=== PATIENT | male | born 1955 | race Caucasian/White ===

== ENCOUNTER 2016-07-15 19:10 | Inpatient (IN) | payer OTHER ==
[~2016-07-15] VITALS: Ht 180.3 cm; Wt 83.0 kg
[2016-07-15 19:13] VITALS: BP 180/138; PULSE 106; RESP 16; TEMP 98; O2SAT 93
[2016-07-15] MEDS ORDERED: ADVA500A INH (19:27)
[2016-07-15] MEDS ORDERED: PRED10 PO (19:27)
--- NOTE | 2016-07-15 19:41 | PD ---
HPI Chief Complaint: Respiratory Symptoms Time Seen by Provider: 19:26 Travel History International Travel<30 days: No Contact w/Intl Traveler<30days: No Traveled to known affect area: No History of Present Illness HPI The patient is a 61 year old male who presents to the [facility] emergency department with a history of shortness of breath. He reports is intermittently been present since last week. The patient reports that he discuss this with his primary care physician in [place] prior to traveling to the area for vacation. He reports that he was given a prescription for prednisone which he has been taking in small amounts since then. He reports that his symptoms have worsened since arriving in [place] as he is experiencing sneezing, itchy watery eyes, nasal congestion, and he is concerned that he is experiencing some seasonal allergies. The patient reports that he does have a history of COPD. He reports that he uses an Advair inhaler. He denies having a rescue inhaler. The patient denies any recent fevers, neck pain, chest pain, abdominal pain, vomiting, diarrhea, urinary symptoms, or neurologic symptoms. [facility] Past Medical History Narrative Medical The patient's past medical history is significant for COPD, history of chest pain status post cardiac catheterization that was reportedly unremarkable for blockages in December 2015. Cardiovascular Problems: Yes (HEART CATH) COPD: Yes Respiratory: Yes (COPD) Tetanus Vaccination: < 5 Years Influenza Vaccination: No Past Surgical History Narrative Surgical The patient's past surgical history is significant for a cardiac catheterization in 2015 without any evidence of blockages, history of eye surgery related to strabismus. Cardiac Surgery: Yes (Cath 2016) Eye Surgery: Yes Social History Alcohol Use: Yes (2 times per) Tobacco Use: No (quit 3 years ago) Substance Use: No Allergies-Medications (Allergen,Severity, Reaction): Coded Allergies: Iodine (Verified Allergy, Severe, Respiratory Failure, 07/15/16) Codeine (Verified Allergy, Unknown, 07/15/16) Reported Meds & Prescriptions Reported Meds & Active Scripts Active Reported Advair Diskus Inh (Fluticasone-Salmeterol Inh) 500-50 Mcg/Blist Aer 1 Puff INH DAILY Rinse mouth after use. Prednisone 10 Mg Tab 10 Mg PO DAILY Review of Systems General / Constitutional: No: Fever Eyes: No: Visual changes HENT: Positive: Rhinitis, Congestion, No: Headaches Cardiovascular: Positive: Dyspnea on exertion, No: Chest Pain or Discomfort Respiratory: Positive: Cough, Shortness of Breath, Wheezing, Sneezing Gastrointestinal: No: Nausea, Vomiting, Abdominal Pain Genitourinary: No: Dysuria Musculoskeletal: No: Pain Skin: No Rash Neurologic: No: Weakness Psychiatric: No: Depression Endocrine: No: Polydipsia Hematologic/Lymphatic: No: Easy Bruising Physical Exam Narrative General: The patient is a well-developed well-nourished male in no acute distress. Head and Neck exam: Head is normocephalic atraumatic. Eyes: Pupils are equal round and reactive to light. Nose: Midline septum with pink mucous membranes Mouth: Dentition unremarkable. Moist mucus membranes. Posterior oropharynx is not erythematous. No tonsillar hypertrophy. Uvula midline. Airway patent. Neck: No palpable lymphadenopathy. No nuchal rigidity. No thyromegaly. Cardiovascular: Sinus tachycardia in the low 100s without murmurs, gallops, or rubs. No pulse deficit to the extremities and tenderness auscultation and palpation of his radial artery. Lungs: Decreased breath sounds and air movement bilaterally. No rhonchi, crackles, or wheezes audible. Abdomen: Soft, without tenderness to palpation in all 4 quadrants of the abdomen. No guarding, rebound, or rigidity. Normal bowel sounds are audible Extremities: No clubbing, cyanosis, or edema. 2+ pulses in all 4 extremities. No calf tenderness on palpation. Back: No spinous process tenderness to palpation. No costovertebral angle tenderness to palpation. Neurologic Exam: Grossly nonfocal. Skin Exam: No rash noted. Intact skin that is warm and dry. Data Data Last Documented VS Vital Signs Date Time Temp Pulse Resp B/P Pulse Ox O2 Delivery O2 Flow Rate FiO2 07/15/16 21:25 92 Nasal Cannula 2 07/15/16 21:25 98 20 160/87 07/15/16 19:13 98.0 Orders Complete Blood Count With Diff (07/15/16 19:34) Comprehensive Metabolic Panel (07/15/16 19:34) Act Partial Throm Time (Ptt) (07/15/16 19:34) Prothrombin Time / Inr (Pt) (07/15/16 19:34) Magnesium (Mg) (07/15/16 19:34) Ckmb (Isoenzyme) Profile (07/15/16 19:34) Troponin I (07/15/16 19:34) Urinalysis - C+S If Indicated (07/15/16 19:34) Iv Access Insert/Monitor (07/15/16 19:34) Electrocardiogram (07/15/16 19:34) Ecg Monitoring (07/15/16 19:34) Oximetry (07/15/16 19:34) Oxygen Administration (07/15/16 19:34) Chest, Single Ap (07/15/16 19:34) Sodium Chloride 0.9% Flush (Ns Flush) (07/15/16 19:45) Methylprednisolone So Succ Inj (Solumedr (07/15/16 19:45) Albuterol-Ipratropium Neb (Duoneb Neb) (07/15/16 19:45) CKMB (07/15/16 19:40) CKMB% (07/15/16 19:40) Aspirin Chew (Aspirin Chew) (07/15/16 21:45) Nitroglycerin 2% Oint (Nitroglycerin 2% (07/15/16 21:45) Albuterol Neb (Albuterol Neb) (07/15/16 21:45) Admit Order (Ed Use Only) (07/15/16 21:42) Labs Laboratory Tests Test 07/15/16 19:40 White Blood Count 14.6 TH/MM3 Red Blood Count 5.86 MIL/MM3 Hemoglobin 16.9 GM/DL Hematocrit 50.3 % Mean Corpuscular Volume 85.8 FL Mean Corpuscular Hemoglobin 28.9 PG Mean Corpuscular Hemoglobin 33.7 % Concent Red Cell Distribution Width 13.9 % Platelet Count 509 TH/MM3 Mean Platelet Volume 7.4 FL Neutrophils (%) (Auto) 86.8 % Lymphocytes (%) (Auto) 9.4 % Monocytes (%) (Auto) 3.4 % Eosinophils (%) (Auto) 0.0 % Basophils (%) (Auto) 0.4 % Neutrophils # (Auto) 12.6 TH/MM3 Lymphocytes # (Auto) 1.4 TH/MM3 Monocytes # (Auto) 0.5 TH/MM3 Eosinophils # (Auto) 0.0 TH/MM3 Basophils # (Auto) 0.1 TH/MM3 CBC Comment AUTO DIFF Differential Comment AUTO DIFF CONFIRMED Platelet Estimate HIGH Platelet Morphology Comment NORMAL Red Cell Morphology Comment NORMAL Prothrombin Time 10.7 SEC Prothromb Time International 1.0 RATIO Ratio Activated Partial 25.1 SEC Thromboplast Time Sodium Level 138 MEQ/L Potassium Level 4.4 MEQ/L Chloride Level 99 MEQ/L Carbon Dioxide Level 29.7 MEQ/L Anion Gap 9 MEQ/L Blood Urea Nitrogen 31 MG/DL Creatinine 1.26 MG/DL Estimat Glomerular Filtration 59 ML/MIN Rate Random Glucose 112 MG/DL Calcium Level 9.5 MG/DL Magnesium Level 2.5 MG/DL Total Bilirubin 0.4 MG/DL Aspartate Amino Transf 22 U/L (AST/SGOT) Alanine Aminotransferase 47 U/L (ALT/SGPT) Alkaline Phosphatase 82 U/L Total Creatine Kinase 247 U/L Creatine Kinase MB 5.1 NG/ML Troponin I 0.03 NG/ML Total Protein 8.4 GM/DL Albumin 4.3 GM/DL [facility] Medical Decision Making Medical Screen Exam Complete: Yes Emergency Medical Condition: Yes Medical Record Reviewed: Yes Interpretation(s) Laboratory Tests Test 07/15/16 19:40 White Blood Count 14.6 TH/MM3 Red Blood Count 5.86 MIL/MM3 Hemoglobin 16.9 GM/DL Hematocrit 50.3 % Mean Corpuscular Volume 85.8 FL Mean Corpuscular Hemoglobin 28.9 PG Mean Corpuscular Hemoglobin 33.7 % Concent Red Cell Distribution Width 13.9 % Platelet Count 509 TH/MM3 Mean Platelet Volume 7.4 FL Neutrophils (%) (Auto) 86.8 % Lymphocytes (%) (Auto) 9.4 % Monocytes (%) (Auto) 3.4 % Eosinophils (%) (Auto) 0.0 % Basophils (%) (Auto) 0.4 % Neutrophils # (Auto) 12.6 TH/MM3 Lymphocytes # (Auto) 1.4 TH/MM3 Monocytes # (Auto) 0.5 TH/MM3 Eosinophils # (Auto) 0.0 TH/MM3 Basophils # (Auto) 0.1 TH/MM3 CBC Comment AUTO DIFF Differential Comment AUTO DIFF CONFIRMED Platelet Estimate HIGH Platelet Morphology Comment NORMAL Red Cell Morphology Comment NORMAL Prothrombin Time 10.7 SEC Prothromb Time International 1.0 RATIO Ratio Activated Partial 25.1 SEC Thromboplast Time Sodium Level 138 MEQ/L Potassium Level 4.4 MEQ/L Chloride Level 99 MEQ/L Carbon Dioxide Level 29.7 MEQ/L Anion Gap 9 MEQ/L Blood Urea Nitrogen 31 MG/DL Creatinine 1.26 MG/DL Estimat Glomerular Filtration 59 ML/MIN Rate Random Glucose 112 MG/DL Calcium Level 9.5 MG/DL Magnesium Level 2.5 MG/DL Total Bilirubin 0.4 MG/DL Aspartate Amino Transf 22 U/L (AST/SGOT) Alanine Aminotransferase 47 U/L (ALT/SGPT) Alkaline Phosphatase 82 U/L Total Creatine Kinase 247 U/L Creatine Kinase MB 5.1 NG/ML Troponin I 0.03 NG/ML Total Protein 8.4 GM/DL Albumin 4.3 GM/DL Last Impressions Chest X-Ray 07/15/161933 Signed Impressions: Service Date/Time: Friday, July 15, 2016 20:15 - CONCLUSION: No acute disease. Hermann Monzon MD Differential Diagnosis COPD exacerbation related to allergic rhinitis, versus COPD exacerbation related to upper respiratory infection, versus new-onset congestive heart failure, versus acute coronary syndrome, versus pneumothorax Narrative Course During the course of the patients emergency department visit, the patients history, examination, and differential diagnosis were reviewed with the patient. The patient had IV access obtained and blood work sent for analysis. The patient was placed on a dry roller with oximetry and blood pressure monitoring. An EKG was ordered. The patient's EKG shows a sinus rhythm heart rate of 90, nonspecific ST-T wave abnormalities, no acute ST segment elevation is noted. The patient was provided DuoNeb 3, Solu-Medrol 125 mg IV. The patient was reexamined after his 3 duo nebs and the patient was saturating 95-96% on room air. The patient had increased air movement and had soft expiratory wheezes now audible. No rhonchi, no crackles audible. The patient received an albuterol nebulizer treatment and unfortunately continued to have wheezing with room air O2 saturation on pulse oximetry of 89% . The patient was placed on supplemental oxygen. The patient was agreeable with the plan to proceed with admission for observation, nebulizer treatments, and IV steroids. The patients laboratory studies were reviewed and remarkable for a white count of 14.6, hemoglobin 16.9, platelets 509 with 86.8 neutrophils. CMP is remarkable for BUN of 31, glucose 112, CPK 247 with an MB percent of 5.1, PT PTT within normal limits, urinalysis shows 30 protein otherwise unremarkable. Radiology studies were reviewed and remarkable for a chest x-ray that showed no acute abnormality. The patients results were discussed with the patient, including the plan of care. I explained that further testing and/ or monitoring is indicated based on the patients history, examination, and/ or laboratory findings. Therefore, I recommended admission for additional evaluation. The patient expressed understanding and was agreeable with this plan. The patient was admitted to the hospital in stable condition and sent to a [facility]. Physician Communication Physician Communication The patient's case was discussed with Dr. Olsen who did agree to admit the patient for further evaluation and treatment at this time. Diagnosis Primary Impression: COPD exacerbation Additional Impression: Hypoxemia Admitting Information Admitting Physician Requests: Observation Mariama Collins MD Jul 15, 2016 19:40
[2016-07-15] MEDS ORDERED: SODIUM CHLORIDE 0.9% FLUSH 5 ML FLUSH IVF PRN (19:45)
[2016-07-15] MEDS ORDERED: methylPREDNISolone SOD SUCC 125 MG/2 ML VIAL IVP ONE (19:45)
[2016-07-15] MEDS: RESP: ALBUTEROL 2.5 MG/IPRATROPIUM 0.5 MG NEB (SCH) INH (19:46)
[2016-07-15 19:51] LABS: AUTOMATED NEUTROPHIL # 12.6 TH/MM3 (1.8-7.7); BASOPHIL # 0.1 TH/MM3 (0-0.2); BASOPHIL % 0.4 % (0.0-2.0); HEMATOCRIT 50.3 % (39.0-51.0); LYMPH % 9.4 % (9.0-44.0); LYMPHOCYTE # 1.4 TH/MM3 (1.0-4.8); MEAN CELL VOLUME 85.8 FL (80.0-100.0); MEAN CORPUSCULAR HEMOGLOBIN 28.9 PG (27.0-34.0); MEAN CORPUSCULAR HGB CONC 33.7 % (32.0-36.0); MONO % 3.4 % (0.0-8.0); NEUT % 86.8 % (16.0-70.0); PLATELET COUNT 509 TH/MM3 (150-450); RED BLOOD COUNT 5.86 MIL/MM3 (4.50-5.90); RED CELL DISTRIBUTION WIDTH 13.9 % (11.6-17.2); WHITE BLOOD COUNT 14.6 TH/MM3 (4.0-11.0)
[2016-07-15 19:53] VITALS: BP 158/106; PULSE 88; RESP 18; O2SAT 99
[2016-07-15 20:00] LABS: HEMO FLAGS AUTO DIFF
[2016-07-15 20:01] LABS: APTT (PATIENT) 25.1 SEC (24.3-30.1); PLATELET ESTIMATE SMEAR HIGH (NORMAL); PLATELET MORPHOLOGY NORMAL (NORMAL); PROTHROMBIN TIME - PATIENT 10.7 SEC (9.8-11.6); SCAN/DIFF AUTO DIFF CONFIRMED
[2016-07-15 20:28] LABS: ALKALINE PHOSPHATASE 82 U/L (45-117); ALT (GPT) 47 U/L (12-78); ANION GAP 9 MEQ/L (5-15); AST (GOT) 22 U/L (15-37); BICARBONATE 29.7 MEQ/L (21.0-32.0); BLOOD UREA NITROGEN 31 MG/DL (7-18); CHLORIDE 99 MEQ/L (98-107); CREATINE KINASE 247 U/L (39-308); GLOMERULAR FILTRATION RATE 59 ML/MIN (>89); MAGNESIUM 2.5 MG/DL (1.5-2.5); POTASSIUM 4.4 MEQ/L (3.5-5.1); SODIUM (NA) 138 MEQ/L (136-145); TOTAL BILIRUBIN ADULT 0.4 MG/DL (0.2-1.0)
[2016-07-15 20:41] LABS: CKMB 5.1 NG/ML (0.5-3.6)
--- NOTE | 2016-07-15 20:56 | RADRPT ---
EXAM DATE/TIME: 07/15/2016 20:15 [facility] COMPARISON: No previous studies available for comparison. INDICATIONS : Short of Breath MEDICAL HISTORY : Chronic obstructive pulmonary disease. SURGICAL HISTORY : None. ENCOUNTER: Initial ACUITY: 1 day PAIN SCORE: 0/10 LOCATION: Bilateral chest FINDINGS: A single view of the chest demonstrates the lungs to be symmetrically aerated without evidence of mas s, infiltrate or effusion. The cardiomediastinal contours are unremarkable. Osseous structures are intact. CONCLUSION: No acute disease. Hermann Monzon MD on July 15, 2016 at 20:53 Board Certified Radiologist. This report was verified electronically.
[2016-07-15 21:25] VITALS: BP 160/87; PULSE 98; RESP 20; O2SAT 89; O2SAT 90
[2016-07-15] MEDS ORDERED: ASPIRIN 81 MG CHEW TAB CHEW ONE (21:45)
[2016-07-15] MEDS ORDERED: RESP: ALBUTEROL 2.5 MG/3 ML NEB (SCH) NEB ONE (21:45)
[2016-07-15] MEDS ORDERED: NITROGLYCERIN 2% OINT 1 GM PACKET TOPICAL ONE (21:45)
[2016-07-15 23:07] LABS: BLOOD, URINE NEG (NEG); GLUCOSE,URINE NEG (NEG); KETONE, URINE NEG (NEG); MUCUS URINE FEW /lpf (OCC); NITRITE,URINE NEG (NEG); SQUAMOUS EPITHELIAL CELL URINE <1 /hpf (0-5); URINE COLOR YELLOW (YELLW/STRAW)
[2016-07-15 23:11] LABS: COMMENT (UR) CULT NOT INDICATED; CULTURE IF INDICATED CULT NOT INDICATED
[2016-07-15 23:54] VITALS: O2SAT 93
[2016-07-16] VITALS (10 sets, daily range): BP systolic 116–150; BP diastolic 74–90; PULSE 73–92; RESP 18–20; TEMP 96.3–97.3; O2SAT 92–96
[2016-07-16] MEDS ORDERED: RESP: ALBUTEROL 2.5 MG/IPRATROPIUM 0.5 MG NEB (PRN) NEB
[2016-07-16] MEDS ORDERED: NALOXONE HCL 0.4 MG/ML AMP IV PRN
[2016-07-16] MEDS ORDERED: SODIUM CHLORIDE 0.9% FLUSH 5 ML FLUSH FLUSH PRN
[2016-07-16] MEDS: methylPREDNISolone SOD SUCC 40 MG/1 ML VIAL IV PUSH SCH ×3 (00:05→11:57)
[2016-07-16] MEDS: RESP: ALBUTEROL 2.5 MG/IPRATROPIUM 0.5 MG NEB (SCH) NEB ×4 (04:30→22:37)
[2016-07-16] MEDS: ENOXAPARIN SODIUM 40 MG/0.4 ML SYRINGE SQ SCH (08:46)
[2016-07-16] MEDS: SODIUM CHLORIDE 0.9% FLUSH 5 ML FLUSH FLUSH SCH ×2 (08:47→21:01)
[2016-07-16] MEDS: PANTOPRAZOLE SOD 40 MG DELAYED RELEASE TAB PO SCH (08:47)
[2016-07-16 09:44] LABS: BICARBONATE 31.9 MEQ/L (21.0-32.0); POTASSIUM 3.8 MEQ/L (3.5-5.1)
--- NOTE | 2016-07-16 14:17 | EKG ---
Date Performed: 07/16/2016 Time Performed: 07:01:46 PTAGE: 61 years EKG: Sinus rhythm NONSPECIFIC T-WAVE ABNORMALITY BORDERLINE ECG PREVIOUS TRACING : 07/16/2016 02.30 DOCTOR: Jose A Ramsay Interpretating Date/Time 07/16/2016 14:13:54
--- NOTE | 2016-07-16 14:21 | EKG ---
Date Performed: 07/16/2016 Time Performed: 02:30:49 PTAGE: 61 years EKG: Sinus rhythm WITH SINUS ARRHYTHMIA NONSPECIFIC T-WAVE ABNORMALITY BORDERLINE ECG PREVIOUS TRACING : 07/15/2016 20.01 DOCTOR: Jose A Ramsay Interpretating Date/Time 07/16/2016 14:17:40
--- NOTE | 2016-07-16 14:26 | EKG ---
Date Performed: 07/15/2016 Time Performed: 20:01:39 PTAGE: 61 years EKG: Sinus rhythm NONSPECIFIC ST & T-WAVE ABNORMALITY BORDERLINE ECG NO PREVIOUS TRACING DOCTOR: Jose A Ramsay Interpretating Date/Time 07/16/2016 14:23:01
--- NOTE | 2016-07-16 15:36 | HHI.HP ---
[facility] Non[facility]Staff Admission Diagnosis COPD exacerbation, hypoxia on RA Diagnoses: Chief Complaint: Shortness of breath Travel History International Travel<30 Days: No Contact w/Intl Traveler <30 Da: No Traveled to Known Affected Are: No History of Present Illness This is a 61 year-old male with history of COPD presented to the hospital with shortness of breath. Of note, patient extremity or from [place]. Before leaving [place], he was given prednisone which she has been on a taper, he has been taking 5 mg of prednisone as needed. During the past week, he is becoming more short of breath, associated with cough, nonproductive without any fever, chills, nausea or vomiting. He however has a runny nose, she will agree eyes and nasal congestion. No fever or chills, urinary symptoms, abdominal pain, chest pain or palpitations. Review of Systems ROS Limitations: Poor Historian (All other pertinent systems were reviewed and are negative.) Past Family Social History Past Medical History COPD Past Surgical History Cardiac catheterization-negative Eye surgery for strabismus Reported Medications Advair Diskus Inh (Fluticasone-Salmeterol Inh) 500-50 Mcg/Blist Aer 1 Puff INH DAILY Rinse mouth after use. Prednisone 10 Mg Tab 10 Mg PO DAILY Allergies: Coded Allergies: Iodine (Verified Allergy, Severe, Respiratory Failure, 07/15/16) Codeine (Verified Allergy, Unknown, 07/15/16) Family History No history of COPD or diabetes in the family Social History Stop smoking 3 years ago, no significant alcohol use. Physical Exam Vital Signs Vital Signs Date Time Temp Pulse Resp B/P Pulse Ox O2 Delivery O2 Flow Rate FiO2 07/16/16 12:00 97.3 84 20 116/82 96 07/16/16 09:30 87 07/16/16 08:51 93 Nasal Cannula 1.00 07/16/16 08:00 96.4 78 20 136/74 92 07/16/16 04:30 93 Nasal Cannula 2.00 07/16/16 04:00 96.4 74 18 132/82 94 07/16/16 04:00 73 07/16/16 00:05 84 18 127/84 94 Nasal Cannula 2 07/15/16 23:54 93 Nasal Cannula 2.00 07/15/16 21:25 92 Nasal Cannula 2 07/15/16 21:25 98 20 160/87 89 Room Air 07/15/16 19:53 88 18 158/106 99 T-piece 07/15/16 19:22 106 20 91 Room Air 07/15/16 19:13 98.0 106 16 180/138 93 Physical Exam Not in distress, well-nourished, looks stated age PERRL, pink conjunctiva without injection, anicteric Nose without bleeding, airway patent, oropharynx clear Supple neck, no masses or thyromegaly, trachea midline Normal rate and regular rhythm, no murmurs gallops or rubs appreciated. Decreased breath sounds bilaterally, occasional wheezing. Normal bowel sounds, soft, non-tender, nondistended, no guarding. Extremities without clubbing, cyanosis, or edema. No rash of generalized distribution. Skin is warm and dry. AAO x3, no cranial nerve deficits, moves all 4 extremities, no focal neurologic deficits Normal mood, appropriate affect Laboratory Laboratory Tests Test 07/15/16 07/15/16 07/16/16 07/16/16 19:40 22:45 02:30 08:34 White Blood Count 14.6 Red Blood Count 5.86 Hemoglobin 16.9 Hematocrit 50.3 Mean Corpuscular Volume 85.8 Mean Corpuscular Hemoglobin 28.9 Mean Corpuscular Hemoglobin 33.7 Concent Red Cell Distribution Width 13.9 Platelet Count 509 Mean Platelet Volume 7.4 Neutrophils (%) (Auto) 86.8 Lymphocytes (%) (Auto) 9.4 Monocytes (%) (Auto) 3.4 Eosinophils (%) (Auto) 0.0 Basophils (%) (Auto) 0.4 Neutrophils # (Auto) 12.6 Lymphocytes # (Auto) 1.4 Monocytes # (Auto) 0.5 Eosinophils # (Auto) 0.0 Basophils # (Auto) 0.1 CBC Comment AUTO DIFF Differential Comment AUTO DIFF CONFIRMED Platelet Estimate HIGH Platelet Morphology Comment NORMAL Red Cell Morphology Comment NORMAL Prothrombin Time 10.7 Prothromb Time International 1.0 Ratio Activated Partial 25.1 Thromboplast Time Sodium Level 138 138 Potassium Level 4.4 3.8 Chloride Level 99 96 Carbon Dioxide Level 29.7 31.9 Anion Gap 9 10 Blood Urea Nitrogen 31 30 Creatinine 1.26 1.35 Estimat Glomerular Filtration 59 54 Rate Random Glucose 112 196 Calcium Level 9.5 9.1 Magnesium Level 2.5 Total Bilirubin 0.4 Aspartate Amino Transf 22 (AST/SGOT) Alanine Aminotransferase 47 (ALT/SGPT) Alkaline Phosphatase 82 Total Creatine Kinase 247 132 105 Creatine Kinase MB 5.1 Troponin I 0.03 0.02 0.02 Total Protein 8.4 Albumin 4.3 Urine Color YELLOW Urine Turbidity CLEAR Urine pH 6.0 Urine Specific [place] 1.030 Urine Protein 30 Urine Glucose (UA) NEG Urine Ketones NEG Urine Occult Blood NEG Urine Nitrite NEG Urine Bilirubin NEG Urine Urobilinogen LESS THAN 2.0 Urine Leukocyte Esterase NEG Urine RBC 2 Urine WBC 1 Urine Squamous Epithelial <1 Cells Urine Mucus FEW Microscopic Urinalysis Comment CULT NOT INDICATED Result Diagram: 07/15/16193907/16/16 0834 Imaging Last Impressions Chest X-Ray 07/15/161933 Signed Impressions: Service Date/Time: Friday, July 15, 2016 20:15 - CONCLUSION: No acute disease. Hermann Monzon MD Assessment and Plan Assessment and Plan This is a 61 year-old male with history of COPD presenting with shortness of breath Acute COPD exacerbation-chest x-ray personally reviewed negative for pneumonia, patient however has been on prednisone still not getting better, continue intravenous Solu-Medrol, taper to oral tomorrow, start azithromycin intravenously then switched oral. Continue Advair, DuoNeb's [id number] and as needed. Continue oxygen support. Allergic rhinitis-May have an allergic component, start loratadine and Flonase. Acute renal failure-likely from dehydration, start IVF. Recheck BMP tomorrow. Monitor urine output, urinalysis is unremarkable. DVT prophylaxis: Lovenox Physician Certification 2 Midnight Certification Type: Admission for Inpatient Services Order for Inpatient Services The services are ordered in accordance with Medicare regulations or non- Medicare payer requirements, as applicable. In the case of services not specified as inpatient-only, they are appropriately provided as inpatient services in accordance with the 2-midnight benchmark. Estimated LOS (days): 2 days is the estimated time the patient will need to remain in the hospital, assuming treatment plan goals are met and no additional complications. Post-Hospital Plan: Home Stephanie Mercedes MD Jul 16, 2016 15:36
[2016-07-16] MEDS ORDERED: AZITHROMYCIN INJ 500 MG in SODIUM CHLOR 0.9% 250 ML INJ 250 ML IV ONE (15:45)
[2016-07-16] MEDS: FLUTICASONE PROPIONATE 50 MCG/ACT 16 GM NASAL SPRAY EACH NARE SCH (17:04)
[2016-07-16] MEDS: SODIUM CHLOR 0.9% 1000 ML INJ 1,000 ML IV SCH (17:05)
[2016-07-16] MEDS: LORATADINE 10 MG TAB PO SCH (17:05)
[2016-07-16] MEDS ORDERED: ARTIFICIAL TEARS OPTH SOLN 15 ML BTL EACH EYE PRN (22:45)
[2016-07-17] VITALS: BP 147/90; PULSE 74; RESP 18; TEMP 97.1; O2SAT 94
[2016-07-17] MEDS: SODIUM CHLOR 0.9% 1000 ML INJ 1,000 ML IV SCH ×2 (01:45→06:32)
[2016-07-17 04:00] VITALS: BP 154/92; PULSE 70; RESP 18; TEMP 96.2; O2SAT 96
[2016-07-17] MEDS: RESP: ALBUTEROL 2.5 MG/IPRATROPIUM 0.5 MG NEB (SCH) NEB ×2 (05:26→08:59)
[2016-07-17] MEDS ORDERED: ACETAMINOPHEN 325 MG TAB PO ONE (06:15)
[2016-07-17 06:38] LABS: BICARBONATE 29.3 MEQ/L (21.0-32.0); POTASSIUM 3.9 MEQ/L (3.5-5.1)
[2016-07-17 08:00] VITALS: BP 112/68; PULSE 82; RESP 18; TEMP 98.3; O2SAT 95
[2016-07-17] MEDS: SODIUM CHLORIDE 0.9% FLUSH 5 ML FLUSH FLUSH SCH (09:00)
[2016-07-17] MEDS: ENOXAPARIN SODIUM 40 MG/0.4 ML SYRINGE SQ SCH (09:00)
[2016-07-17] MEDS ORDERED: AZITHROMYCIN 250 MG TAB PO SCH (09:00)
[2016-07-17] MEDS ORDERED: predniSONE 20 MG TAB PO SCH (09:00)
[2016-07-17 09:02] VITALS: O2SAT 95
[2016-07-17] MEDS: FLUTICASONE PROPIONATE 50 MCG/ACT 16 GM NASAL SPRAY EACH NARE SCH (10:05)
[2016-07-17] MEDS: PANTOPRAZOLE SOD 40 MG DELAYED RELEASE TAB PO SCH (10:06)
[2016-07-17] MEDS: LORATADINE 10 MG TAB PO SCH (10:06)
[2016-07-17] MEDS ORDERED: LORA-361 PO (10:10)
[2016-07-17] MEDS ORDERED: FLUT50SP EACH NARE (10:10)
[2016-07-17] MEDS ORDERED: ZITH250T PO (10:10)
[2016-07-17] MEDS ORDERED: PRED10 PO (10:10)
--- NOTE | 2016-07-17 10:11 | HHI.DS ---
Discharge Summary Admission Date Jul 16, 2016 at 00:26 Discharge Date: Jul 17, 2016 Admitting Diagnosis COPD exacerbation, hypoxia on RA (1) COPD exacerbation ICD Code: J44.1 (2) Hypoxemia ICD Code: R09.02 Procedures None Brief History - From Admission This is a 61 year-old male with history of COPD presented to the hospital with shortness of breath. Of note, patient extremity or from [place]. Before leaving [place], he was given prednisone which she has been on a taper, he has been taking 5 mg of prednisone as needed. During the past week, he is becoming more short of breath, associated with cough, nonproductive without any fever, chills, nausea or vomiting. He however has a runny nose, she will agree eyes and nasal congestion. No fever or chills, urinary symptoms, abdominal pain, chest pain or palpitations. CBC/BMP: 07/15/16 19407/17/16 0526 Significant Findings Laboratory Tests Test 07/15/16 07/15/16 07/16/16 07/17/16 19:40 22:45 08:34 05:26 White Blood Count 14.6 TH/MM3 (4.0-11.0) Platelet Count 509 TH/MM3 (150-450) Neutrophils (%) (Auto) 86.8 % (16.0-70.0) Neutrophils # (Auto) 12.6 TH/MM3 (1.8-7.7) Platelet Estimate HIGH (NORMAL) Blood Urea Nitrogen 31 MG/DL (7-18) 30 MG/DL (7-18) 30 MG/DL (7-18) Estimat Glomerular Filtration 59 ML/MIN (>89) 54 ML/MIN (>89) 69 ML/MIN (>89) Rate Random Glucose 112 MG/DL 196 MG/DL 109 MG/DL (74-106) (74-106) (74-106) Creatine Kinase MB 5.1 NG/ML (0.5-3.6) Total Protein 8.4 GM/DL (6.4-8.2) Urine Protein 30 mg/dL (NEG-TRACE) Urine Mucus FEW /lpf (OCC) Chloride Level 96 MEQ/L (98-107) Creatinine 1.35 MG/DL (0.60-1.30) Imaging Last Impressions Chest X-Ray 07/15/161933 Signed Impressions: Service Date/Time: Friday, July 15, 2016 20:15 - CONCLUSION: No acute disease. Hermann Monzon MD PE at Discharge Not in distress, well-nourished, looks stated age PERRL, pink conjunctiva without injection, anicteric Nose without bleeding, airway patent, oropharynx clear Supple neck, no masses or thyromegaly, trachea midline Normal rate and regular rhythm, no murmurs gallops or rubs appreciated. Decreased breath sounds symmetrically, no wheezing, no crackles. Normal bowel sounds, soft, non-tender, nondistended, no guarding. Extremities without clubbing, cyanosis, or edema. No rash of generalized distribution. Skin is warm and dry. AAO x3, no cranial nerve deficits, moves all 4 extremities, no focal neurologic deficits Normal mood, appropriate affect Pt update on day of discharge Significantly better today compared to yesterday, improved very rapidly. Still mildly short of breath but wants to go home, no nausea, vomiting, chest pain. Coughing but nonproductive. Afebrile. Hospital Course This is a 61 year-old male with history of COPD all failed outpatient treatment for COPD presenting to the hospital with shortness of breath. Upon admission, the patient was started on intravenous steroids, chest x-ray was unremarkable. Possible bronchitis, patient was started on azithromycin. He also acute renal failure which improved volume resuscitation. Patient responded very well with treatment, he was switched to oral steroids. Creatinine came back normal on the day of discharge. Patient feeling better, he will be discharged on a slow prednisone taper, azithromycin, loratadine and Flonase. Pt Condition on Discharge: Good Discharge Disposition: Discharge Home Discharge Time: > 30 minutes Discharge Instructions DIET: Follow Instructions for: Heart Healthy Diet Activities you can perform: Regular-No Restrictions Follow up Referrals: PCP Follow-up - 1 Week New Medications: Prednisone (Prednisone) 10 Mg Tab 10 MG PO DAILY Take 4 tabs x 5 days, then 3 tabs 3 days, then 2 tabx 3 days, 1 tabx 3 days, then stop. COPD #50 Ref 0 TAB Azithromycin (Zithromax) 250 Mg Tab 500 MG PO DAILY bronchitis #4 TAB Fluticasone Nasal [place] (Fluticasone Nasal [place]) 50 Mcg/Act Naspr 2 SPRAY EACH NARE DAILY runny nose #1 BOTTLE Loratadine (Claritin) 10 Mg Tab 10 MG PO DAILY runny nose #30 TAB Continued Medications: Fluticasone-Salmeterol Inh (Advair Diskus Inh) 500-50 Mcg/Blist Aer 1 PUFF INH DAILY Rinse mouth after use. #1 Ref 0 INHALER Discontinued Medications: Prednisone (Prednisone) 10 Mg Tab 10 MG PO DAILY Ref 0 TAB Stephanie Mercedes MD Jul 17, 2016 10:10
[2016-07-17 12:00] VITALS: BP 140/77; PULSE 90; RESP 18; TEMP 98.5; O2SAT 97
[2016-07-17 12:40] VITALS: PULSE 75
== END 2016-07-17 13:07 | disposition home or self-care (01) | DRG 191 ==
LOC: NEPE 19:10 → NEDA 21:44 → OBSVTOIN 07-16 00:26 → HOCB 07-16 03:23
PROVIDERS: ADMIT Hospitalist; ATTEND Hospitalist
DX: J44.1 Chronic obstructive pulmonary disease with (acute) exacerbation (principal); N17.9 Acute kidney failure, unspecified; J30.2 Other seasonal allergic rhinitis; R09.02 Hypoxemia; E86.0 Dehydration; Z87.891 Personal history of nicotine dependence; Z88.5 Allergy status to narcotic agent; Z88.8 Allergy status to other drugs, medicaments and biological substances
CPT/HCPCS: 71010; 80048; 80053; 81001; 82550; 82552; 83735; 84484; 85025; 85610; 85730; 93005; 94640; 94664; 96374; G0378; J0456; J2920; J2930; J7030; J7050; J7512; J7613

== ENCOUNTER 2016-07-26 04:36 | Emergency (ER) | payer OTHER ==
[~2016-07-26] VITALS: Ht 182.9 cm; Wt 89.0 kg
[~2016-07-26 04:36] MED LIST: ADVA500A INH; FLUT50SP EACH NARE; LORA-361 PO; PRED10 PO; ZITH250T PO
[2016-07-26 04:39] VITALS: BP 139/102; PULSE 94; RESP 18; TEMP 98; O2SAT 95
[2016-07-26] MEDS ORDERED: LEVOFLOXACIN 750 MG TAB PO ONE (06:30)
[2016-07-26] MEDS ORDERED: predniSONE 20 MG TAB PO ONE (06:30)
[2016-07-26] MEDS ORDERED: SPIRCAP INH (06:33)
[2016-07-26] MEDS ORDERED: LEVA750T PO (06:33)
[2016-07-26] MEDS ORDERED: PRED-503 PO (06:33)
--- NOTE | 2016-07-26 06:39 | PD ---
HPI Chief Complaint: Respiratory Symptoms Time Seen by Provider: 06:35 Travel History International Travel<30 days: No Contact w/Intl Traveler<30days: No Traveled to known affect area: No History of Present Illness HPI 61-year-old white male returns to the ER after being discharged from the hospital last week for a COPD exacerbation. He states that he was sent home with 4 days of Zithromax, prednisone, and he was to continue his Serevent. He states that he still feels short of breath and has productive green sputum. He denies any fever or chills. He states his symptoms are moderate but worse when he lays down at night. He does continue to have shortness of breath and wheezing. No nausea or vomiting. PFSH Past Medical History Cancer: No Cardiovascular Problems: Yes (HEART CATH) Chemotherapy: No COPD: Yes Diminished Hearing: No Endocrine: No Genitourinary: No Immune Disorder: No Musculoskeletal: No Psychiatric: No Reproductive: No Respiratory: Yes (COPD) Renal Failure: No Sickle Cell Disease: No Thyroid Disease: No Ulcer: No Past Surgical History Arteriovenous Shunt: No Cardiac Surgery: Yes (Cath 2015) Ear Surgery: Yes (deplobia) Eye Surgery: Yes Insulin Pump: No Joint Replacement: No Other Surgery: Yes Social History Alcohol Use: Yes (2 times per) Tobacco Use: No (quit 3 years ago) Substance Use: No Allergies-Medications (Allergen,Severity, Reaction): Coded Allergies: Iodine (Verified Allergy, Severe, Respiratory Failure, 07/26/16) Codeine (Verified Allergy, Unknown, 07/26/16) Reported Meds & Prescriptions Reported Meds & Active Scripts Active Deltasone (Prednisone) 20 Mg Tab 20 Mg PO TID Spiriva Handihaler (Tiotropium Inh) 18 Mcg Cap 18 Mcg INH DAILY 1 capsule = 18 mcg Levaquin (Levofloxacin) 750 Mg Tab 750 Mg PO DAILY Prednisone 10 Mg Tab 10 Mg PO DAILY Take 4 tabs x 5 days, then 3 tabs 3 days, then 2 tabx 3 days, 1 tabx 3 days, then stop. Claritin (Loratadine) 10 Mg Tab 10 Mg PO DAILY Fluticasone Nasal [place] 50 Mcg/Act Naspr 2 [place] EACH NARE DAILY Zithromax (Azithromycin) 250 Mg Tab 500 Mg PO DAILY Reported Advair Diskus Inh (Fluticasone-Salmeterol Inh) 500-50 Mcg/Blist Aer 1 Puff INH DAILY Rinse mouth after use. Review of Systems Except as stated in HPI: all other systems reviewed are Neg Physical Exam Narrative GENERAL: Well-developed, well-nourished in no acute distress. Nontoxic appearing. HEAD: Normocephalic, atraumatic. EYES: Pupils equal round and reactive. Extraocular motions intact. No scleral icterus. No injection or drainage. ENT: TMs clear without erythema. The external auditory canals clear. Nose: clear . Posterior pharynx is pink and moist. No tonsillar edema or exudate. Uvula midline. Airway patent. NECK: Trachea midline.Supple, nontender, moves head freely. No central bony tenderness or spasm. CARDIOVASCULAR: Regular rate and rhythm without murmurs, gallops, or rubs. RESPIRATORY: Decreased distant breath sounds with fine neck sprain wheezes worse in his bases. GASTROINTESTINAL: Abdomen soft, non-tender, nondistended. No hepato-splenomegaly , or palpable masses. No guarding. EXTREMITIES: No clubbing, cyanosis, or edema. No joint tenderness, effusion, or edema noted. BACK: Nontender without deformity or crepitance. No flank tenderness. Data Data Last Documented VS Vital Signs Date Time Temp Pulse Resp B/P Pulse Ox O2 Delivery O2 Flow Rate FiO2 07/26/16 04:39 98.0 94 18 139/102 95 Room Air Orders Prednisone (Deltasone) (07/26/16 06:30) Levofloxacin (Levaquin) (07/26/16 06:30) [facility] Medical Decision Making Medical Screen Exam Complete: Yes Emergency Medical Condition: Yes Medical Record Reviewed: Yes Differential Diagnosis MDM: High Differential diagnoses: Pneumonia, bronchitis, URI, asthma, RAD, COPD exacerbation Narrative Course tHIS IS copd EXACERBATION, dyspnea Patient is given Levaquin 750 by mouth, prednisone 40 mg by mouth. He'll be discharged home on Spiriva HandiHaler, additional prednisone and Levaquin. Diagnosis Primary Impression: COPD exacerbation Additional Impression: Dyspnea Qualified Code: R06.02 - Shortness of breath Patient Instructions: General Instructions Additional Instructions: Rest. Increase fluids. Tylenol and Advil. Robitussin-DM. Levaquin, prednisone, and Spiriva. Continue your Advair. Followup with your DrKaitlin in 3-5 days. Return to the ER for any problems. Med/Other Pt SpecificInfo: Prescription(s) given Scripts Prednisone (Deltasone)20 Mg Tab20 Mg PO TID #15 TAB Prov:Swetha Parker MD 07/26/16 Tiotropium Inh (Spiriva Handihaler)18 Mcg Cap18 Mcg INH DAILY #30 CAP Ref 0 1 capsule = 18 mcg Prov:Swetha Parker MD 07/26/16 Levofloxacin (Levaquin)750 Mg Tnr428 Mg PO DAILY #7 TAB Ref 0 Prov:Swetha Parker MD 07/26/16 Disposition: 01 DISCHARGE HOME Condition: Stable Hermann Figueroa Jul 26, 2016 06:39
== END 2016-07-26 07:02 | disposition home or self-care (01) ==
LOC: NEPB 04:36
DX: J44.1 Chronic obstructive pulmonary disease with (acute) exacerbation (principal)
CPT/HCPCS: 99283; J7512

== ENCOUNTER 2017-07-27 11:22 | Emergency (ER) | payer BC, OTHER ==
[~2017-07-27] VITALS: Ht 182.9 cm; Wt 81.5 kg
[~2017-07-27 11:22] MED LIST changes: +LEVA750T PO; +PRED-503 PO; +SPIRCAP INH
[2017-07-27 11:31] VITALS: BP 170/80; PULSE 102; RESP 20; TEMP 98.6; O2SAT 96
--- NOTE | 2017-07-27 11:38 | PD ---
HPI Chief Complaint: Respiratory Symptoms Time Seen by Provider: 11:37 Travel History International Travel<30 days: No Contact w/Intl Traveler<30days: No Traveled to known affect area: No History of Present Illness HPI 8-year-old male with history of COPD on chronic albuterol and steroid inhaler presents emergency department with increased wheezing and shortness of breath since arriving here in [place] from [facility]. Patient is requesting some steroids, and states that he gets this way every time he comes to [place]. Patient denies significant fever, chills, or chest pain. Patient states his sputum is clear. He denies upper respiratory symptoms. He denies nausea, vomiting, or abdominal symptoms. Patient has multiple allergies including codeine and any iodine products. PFSH Past Medical History Cancer: No Cardiovascular Problems: Yes (HEART CATH) Chemotherapy: No COPD: Yes Diminished Hearing: No Endocrine: No Genitourinary: No Immune Disorder: No Musculoskeletal: No Psychiatric: No Reproductive: No Respiratory: Yes (COPD) Renal Failure: No Sickle Cell Disease: No Thyroid Disease: No Ulcer: No Past Surgical History Arteriovenous Shunt: No Cardiac Surgery: Yes (Cath 2015) Ear Surgery: Yes (deplobia) Eye Surgery: Yes Insulin Pump: No Joint Replacement: No Other Surgery: Yes Social History Alcohol Use: Yes (2 times per) Tobacco Use: No (quit 3 years ago) Substance Use: No Allergies-Medications (Allergen,Severity, Reaction): Coded Allergies: iodine (Unverified Allergy, Severe, Respiratory Failure, 07/27/17) potassium iodide (Unverified Allergy, Severe, Respiratory Failure, 07/27/17) povidone-iodine (Unverified Allergy, Severe, Respiratory Failure, 07/27/17) sodium iodide (Unverified Allergy, Severe, Respiratory Failure, 07/27/17) sodium iodide (Unverified Allergy, Severe, Respiratory Failure, 07/27/17) codeine (Unverified Allergy, Unknown, 07/27/17) Reported Meds & Prescriptions Reported Meds & Active Scripts Active Prednisone (48) 10 mg tab Dose Pack (Prednisone) 10 Mg Dspk 10 Mg PO DIRECTED Prednisone 10 Mg Tab 10 Mg PO DAILY Take 4 tabs x 5 days, then 3 tabs 3 days, then 2 tabx 3 days, 1 tabx 3 days, then stop. Fluticasone Nasal [place] 50 Mcg/Act Naspr 2 [place] EACH NARE DAILY Zithromax (Azithromycin) 250 Mg Tab 500 Mg PO DAILY Reported Advair Diskus Inh (Fluticasone-Salmeterol Inh) 500-50 Mcg/Blist Aer 1 Puff INH DAILY Rinse mouth after use. Review of Systems Except as stated in HPI: all other systems reviewed are Neg General / Constitutional: No: Fever, Chills Eyes: No: Visual changes HENT: No: Headaches, Vertigo, Lightheadedness, Sore Throat, Rhinitis, Rhinorrhea, Congestion, Nosebleed, Neck Stiffness, Neck Pain, Dental Difficulties, Earache Cardiovascular: No: Chest Pain or Discomfort Respiratory: Positive: Cough, Shortness of Breath, Wheezing, No: Sneezing, Orthopnea, Hemoptysis, Pleuritic Pain Gastrointestinal: No: Nausea, Vomiting, Diarrhea, Abdominal Pain Genitourinary: No: Dysuria Musculoskeletal: No: Pain Skin: No Rash Neurologic: No: Weakness Psychiatric: No: Depression Endocrine: No: Polydipsia Hematologic/Lymphatic: No: Easy Bruising Physical Exam Narrative GENERAL: Patient appears in no acute distress. He is speaking in full sentences. SKIN: Warm and dry. Normal color. Normal turgor. HEAD: Atraumatic. Normocephalic. EYES: Pupils equal and round. No scleral icterus. No injection or drainage. ENT: No nasal bleeding or discharge. Mucous membranes pink and moist. TMs are clear bilaterally. Pharynx is clear. Airways patent. No sinus tenderness to percussion or palpation. NECK: Trachea midline. Supple and nontender. CARDIOVASCULAR: Regular rate and rhythm. RESPIRATORY: No accessory muscle use. Mild to moderate diffuse wheezes throughout to auscultation. No rhonchi or rales. Breath sounds equal bilaterally. MUSCULOSKELETAL: Extremities without clubbing, cyanosis, or edema. No obvious deformities. NEUROLOGICAL: Awake and alert. No obvious cranial nerve deficits. Motor grossly within normal limits. Five out of 5 muscle strength in the arms and legs. Normal speech. PSYCHIATRIC: Appropriate mood and affect; insight and judgment normal. Data Data Last Documented VS Vital Signs Date Time Temp Pulse Resp B/P (MAP) Pulse Ox O2 Delivery O2 Flow Rate FiO2 07/27/17 11:31 98.6 102 20 170/80 (110) 96 Orders Orders Chest, Single Ap (07/27/17 11:41) Dexamethasone Inj (Decadron Inj) (07/27/17 11:45) [facility] Medical Decision Making Medical Screen Exam Complete: Yes Emergency Medical Condition: Yes Differential Diagnosis COPD with acute exacerbation. Dyspnea. Allergic bronchitis. Narrative Course Chest x-ray is ordered. Chest x-ray is unremarkable for acute process per radiologist. Patient is given Decadron 10 mg IM. Patient is felt stable for discharge. Patient will be continued on prednisone taper as prescribed. Patient to continue his albuterol and steroid inhaler as previously prescribed. Patient should return if symptoms worsen as needed. Diagnosis Primary Impression: COPD exacerbation Referrals: Primary Care Physician Patient Instructions: Chronic Bronchitis (ED), General Instructions, Prednisone (By mouth) Additional Instructions: Patient is given Decadron 10 mg IM. Patient is felt stable for discharge. Patient will be continued on prednisone taper as prescribed. Patient to continue his albuterol and steroid inhaler as previously prescribed. Patient should return if symptoms worsen as needed. Med/Other Pt SpecificInfo: Prescription(s) given Scripts Prednisone (48) 10 mg tab Dose Pack (Prednisone (48) 10 mg tab Dose Pack) 10 Mg Dspk 10 MG PO DIRECTED for Inflammation, #1 DSPK 0 Refills Prov: Lucinda Tong DO 07/27/17 Disposition: 01 DISCHARGE HOME Condition: Stable Francisco Cornell Jul 27, 2017 11:38
[2017-07-27] MEDS ORDERED: DEXAMETHASONE SOD PHOS 20 MG/5 ML VIAL IM ONE (11:45)
[2017-07-27] MEDS ORDERED: PRED10PA2 PO (11:48)
--- NOTE | 2017-07-27 12:44 | RADRPT ---
EXAM DATE/TIME: 07/27/2017 12:21 [place] COMPARISON: CHEST SINGLE AP, July 15, 2016, 20:15. INDICATIONS : Short of breath. MEDICAL HISTORY : Chronic obstructive pulmonary disease. SURGICAL HISTORY : cardiac cath ENCOUNTER: Initial ACUITY: 3 days PAIN SCORE: 0/10 LOCATION: Bilateral chest FINDINGS: A single view of the chest demonstrates the lungs to be symmetrically aerated without evidence of mas s, infiltrate or effusion. The cardiomediastinal contours are unremarkable. Osseous structures are intact. CONCLUSION: Normal examination. Jose J Patel MD on July 27, 2017 at 12:43 Board Certified Radiologist. This report was verified electronically.
== END 2017-07-27 13:35 | disposition home or self-care (01) ==
LOC: NEPD 11:22
DX: J44.1 Chronic obstructive pulmonary disease with (acute) exacerbation (principal); Z79.51 Long term (current) use of inhaled steroids; Z79.899 Other long term (current) drug therapy; Z88.5 Allergy status to narcotic agent; Z88.8 Allergy status to other drugs, medicaments and biological substances; Z87.891 Personal history of nicotine dependence
CPT/HCPCS: 71045; 96372; 99283; J1100

== ENCOUNTER 2017-07-29 21:05 | Emergency (ER) | payer BC ==
[~2017-07-29 21:05] MED LIST changes: -LEVA750T PO; -LORA-361 PO; -PRED-503 PO; +PRED10PA2 PO; -SPIRCAP INH
[2017-07-29 21:08] VITALS: BP 184/103; PULSE 111; RESP 24; TEMP 97.5; O2SAT 93
[2017-07-30] MEDS ORDERED: ALBUAER3 INH (08:12)
[2017-07-30] MEDS ORDERED: PRED20 PO (09:30)
--- NOTE | 2017-07-30 12:12 | PD ---
HPI Chief Complaint: Respiratory Symptoms Time Seen by Provider: 21:08 Travel History International Travel<30 days: No Contact w/Intl Traveler<30days: No Traveled to known affect area: No History of Present Illness HPI 8-year-old male with history of COPD and multiple flares, presents emergency department today for evaluation of continued shortness of breath. Patient was seen and evaluated here the other day and states that he was given a shot but did not work. He is requesting Solu-Medrol and DuoNeb. Denies any pain. States that this is typical for COPD exacerbation. Denies any fever or chills. He has no other symptoms to report. PFSH Past Medical History Cancer: No Cardiovascular Problems: Yes Chemotherapy: No COPD: Yes Diminished Hearing: No Endocrine: No Genitourinary: No Immune Disorder: No Musculoskeletal: No Psychiatric: No Reproductive: No Respiratory: Yes (COPD) Renal Failure: No Sickle Cell Disease: No Thyroid Disease: No Ulcer: No Past Surgical History Arteriovenous Shunt: No Cardiac Surgery: Yes (Cath 2015) Ear Surgery: Yes (deplobia) Eye Surgery: Yes Insulin Pump: No Joint Replacement: No Other Surgery: Yes Social History Alcohol Use: Yes (2 times per) Tobacco Use: No (quit 3 years ago) Substance Use: No Allergies-Medications (Allergen,Severity, Reaction): Coded Allergies: codeine (Unverified Allergy, Severe, NAUSEA, 07/30/17) iodine (Unverified Allergy, Severe, Respiratory Failure, 07/30/17) potassium iodide (Unverified Allergy, Severe, Respiratory Failure, 07/30/17) povidone-iodine (Unverified Allergy, Severe, Respiratory Failure, 07/30/17) sodium iodide (Unverified Allergy, Severe, Respiratory Failure, 07/30/17) sodium iodide (Unverified Allergy, Severe, Respiratory Failure, 07/30/17) Reported Meds & Prescriptions Reported Meds & Active Scripts Active Prednisone 20 Mg Tab 20 Mg PO DIRECTED Take 60 MG daily x 4 days, then 40 MG x 4 days, then 20 MG daily x 4 days. Prednisone 10 Mg Tab 10 Mg PO DAILY Take 4 tabs x 5 days, then 3 tabs 3 days, then 2 tabx 3 days, 1 tabx 3 days, then stop. Reported Proair Hfa 8.5 GM Inh (Albuterol Sulfate) 90 Mcg/Act Aer 2 Puff INH Q6H PRN 108 mcg/actuation Review of Systems Except as stated in HPI: all other systems reviewed are Neg Physical Exam Narrative Well-nourished male patient appears nontoxic and in no acute distress. He has even respirations however I can hear coarse breath sounds as well as wheezes without using my stethoscope. He is tachycardic. His abdomen is her time. He moves all extremities. He speaks clearly. Data Data Last Documented VS Vital Signs Date Time Temp Pulse Resp B/P (MAP) Pulse Ox O2 Delivery O2 Flow Rate FiO2 07/29/17 21:08 97.5 111 24 184/103 (130) 93 MDM Medical Decision Making Medical Screen Exam Complete: Yes Emergency Medical Condition: Yes Medical Record Reviewed: Yes Differential Diagnosis COPD exacerbation versus pneumonia versus CHF Narrative Course 8-year-old male presents to emergency department for evaluation of shortness of breath. Patient appears without distress. Workup is initiated in triage. Prior to the placement, patient is to leave. AMA: The risks of leaving against medical advice without further evaluation treatment were discussed with the patient. These risks include cardiac dysfunction, cardiac dysrhythmia, possible heart attack, possible stroke or . The patient indicated understanding of these risks and appeared to have the capacity to make this decision. Diagnosis Primary Impression: Left against medical advice Additional Impression: COPD exacerbation Patient Instructions: General Instructions Departure Forms: Tests/Procedures Disposition: 07 AGAINST MEDICAL ADVICE Condition: Stable Gely Maloney Jul 30, 2017 12:12
== END 2017-07-29 22:41 | disposition left against medical advice (07) ==
LOC: NED 21:05
DX: J44.1 Chronic obstructive pulmonary disease with (acute) exacerbation (principal); Z53.21 Procedure and treatment not carried out due to patient leaving prior to being seen by health care provider; Z87.891 Personal history of nicotine dependence; Z88.5 Allergy status to narcotic agent; Z88.8 Allergy status to other drugs, medicaments and biological substances; Z79.899 Other long term (current) drug therapy
CPT/HCPCS: 99281

== ENCOUNTER 2017-07-30 04:54 | Emergency (ER) | payer BC ==
[~2017-07-30] VITALS: Ht 182.9 cm; Wt 80.0 kg
[2017-07-30 05:03] VITALS: BP 186/103; PULSE 82; RESP 20; TEMP 98; O2SAT 95
[2017-07-30] MEDS ORDERED: ALBUAER3 INH (08:12)
[2017-07-30] MEDS ORDERED: PRED20 PO (09:30)
== END 2017-07-30 07:21 | disposition left against medical advice (07) ==
LOC: NED 04:54
DX: R09.89 Other specified symptoms and signs involving the circulatory and respiratory systems (principal)
CPT/HCPCS: 99281

== ENCOUNTER 2017-07-30 07:39 | Emergency (ER) | payer BC ==
[~2017-07-30] VITALS: Ht 182.9 cm; Wt 83.7 kg
[2017-07-30 07:45] VITALS: PULSE 109; RESP 20; TEMP 98.6; O2SAT 94
[2017-07-30] MEDS ORDERED: ALBUAER3 INH (08:12)
[2017-07-30 08:30] VITALS: O2SAT 96
[2017-07-30] MEDS ORDERED: methylPREDNISolone SOD SUCC 125 MG/2 ML VIAL IV PUSH ONE (08:30)
[2017-07-30] MEDS ORDERED: SODIUM CHLORIDE 0.9% FLUSH 10 ML FLUSH IVF PRN (08:30)
[2017-07-30 08:37] LABS: AUTOMATED NEUTROPHIL # 17.5 TH/MM3 (1.8-7.7); BASOPHIL # 0.1 TH/MM3 (0-0.2); BASOPHIL % 0.8 % (0.0-2.0); HEMATOCRIT 45.2 % (39.0-51.0); HEMOGLOBIN 15.7 GM/DL (13.0-17.0); LYMPH % 2.3 % (9.0-44.0); LYMPHOCYTE # 0.4 TH/MM3 (1.0-4.8); MEAN CORPUSCULAR HEMOGLOBIN 30.2 PG (27.0-34.0); MEAN CORPUSCULAR HGB CONC 34.7 % (32.0-36.0); MEAN PLATELET VOLUME 7.5 FL (7.0-11.0); MONO % 2.1 % (0.0-8.0); MONOCYTE # 0.4 TH/MM3 (0-0.9); NEUT % 94.8 % (16.0-70.0); PLATELET COUNT 392 TH/MM3 (150-450); WHITE BLOOD COUNT 18.4 TH/MM3 (4.0-11.0)
[2017-07-30] MEDS: RESP: ALBUTEROL 2.5 MG/IPRATROPIUM 0.5 MG NEB (SCH) INH ×2 (08:44→08:45)
[2017-07-30 08:47] VITALS: O2SAT 93
[2017-07-30 08:47] LABS: CALCIUM 8.6 MG/DL (8.5-10.1)
[2017-07-30 08:48] LABS: BICARBONATE 31.5 MEQ/L (21.0-32.0); MAGNESIUM 2.4 MG/DL (1.5-2.5)
[2017-07-30 08:51] LABS: CREATININE 1.1 MG/DL (0.60-1.30)
[2017-07-30 08:55] VITALS: BP 163/94; PULSE 93; RESP 20; O2SAT 93
[2017-07-30] MEDS ORDERED: PRED20 PO (09:30)
--- NOTE | 2017-07-30 09:30 | PD ---
HPI Chief Complaint: Respiratory Symptoms Time Seen by Provider: 08:10 Travel History International Travel<30 days: No Contact w/Intl Traveler<30days: No Traveled to known affect area: No History of Present Illness HPI This 62-year-old male is complaining of shortness of breath. He has a history of COPD. He has been seen at the [facility] 2 days ago and was given 10 mg of Decadron IM. Still feeling short of breath. He lives in [place] and says whenever he comes to [place] he has trouble. He is not having pain or fever. He does not smoke. He stopped smoking 4 years ago. 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) Insulin Pump: No Joint Replacement: No Other Surgery: Yes Social History Alcohol Use: Yes (2 times per) Tobacco Use: No (quit 3 years ago) Substance Use: No Allergies-Medications (Allergen,Severity, Reaction): Coded Allergies: codeine (Unverified Allergy, Severe, NAUSEA, 07/30/17) iodine (Unverified Allergy, Severe, Respiratory Failure, 07/30/17) potassium iodide (Unverified Allergy, Severe, Respiratory Failure, 07/30/17) povidone-iodine (Unverified Allergy, Severe, Respiratory Failure, 07/30/17) sodium iodide (Unverified Allergy, Severe, Respiratory Failure, 07/30/17) sodium iodide (Unverified Allergy, Severe, Respiratory Failure, 07/30/17) Reported Meds & Prescriptions Reported Meds & Active Scripts Active Prednisone 10 Mg Tab 10 Mg PO DAILY Take 4 tabs x 5 days, then 3 tabs 3 days, then 2 tabx 3 days, 1 tabx 3 days, then stop. Reported Proair Hfa 8.5 GM Inh (Albuterol Sulfate) 90 Mcg/Act Aer 2 Puff INH Q6H PRN 108 mcg/actuation Review of Systems General / Constitutional: No: Fever, Chills Eyes: No: Diploplia, Blurred Vision HENT: No: Headaches, Vertigo Cardiovascular: No: Chest Pain or Discomfort Respiratory: Positive: Cough, Shortness of Breath, Wheezing Gastrointestinal: No: Vomiting, Diarrhea Genitourinary: No: Urgency Skin: No Rash Neurologic: No: Weakness, Dizziness Psychiatric: No: Anxiety Hematologic/Lymphatic: No: Easy Bruising Physical Exam Narrative GENERAL: Well-developed male SKIN: Focused skin assessment warm/dry. HEAD: Atraumatic. Normocephalic. EYES: Pupils equal and round. No scleral icterus. No injection or drainage. ENT: No nasal bleeding or discharge. Mucous membranes pink and moist. NECK: Trachea midline. No JVD. CARDIOVASCULAR: Regular rate and rhythm. No murmur appreciated. RESPIRATORY: No accessory muscle use. Clear to auscultation. There is occasional wheezing breath sounds diminished bilaterally. GASTROINTESTINAL: Abdomen soft, non-tender, nondistended. Hepatic and splenic margins not palpable. MUSCULOSKELETAL: No obvious deformities. No clubbing. No cyanosis. No edema. NEUROLOGICAL: Awake and alert. No obvious cranial nerve deficits. Motor grossly within normal limits. Normal speech. PSYCHIATRIC: Appropriate mood and affect; insight and judgment normal. Data Data Last Documented VS Vital Signs Date Time Temp Pulse Resp B/P (MAP) Pulse Ox O2 Delivery O2 Flow Rate FiO2 07/30/17 08:55 93 20 163/94 (117) 93 07/30/17 08:47 21 07/30/17 08:30 Room Air 07/30/17 07:45 98.6 Orders Orders Complete Blood Count With Diff (07/30/17 08:17) Basic Metabolic Panel (Bmp) (07/30/17 08:17) Magnesium (Mg) (07/30/17 08:17) Iv Access Insert/Monitor (07/30/17 08:17) Ecg Monitoring (07/30/17 08:17) Oximetry (07/30/17 08:17) Oxygen Administration (07/30/17 08:17) Sodium Chloride 0.9% Flush (Ns Flush) (07/30/17 08:30) Methylprednisolone So Succ Inj (Solumedr (07/30/17 08:30) Albuterol-Ipratropium Neb (Duoneb Neb) (07/30/17 08:30) Labs Laboratory Tests Test 07/30/17 08:30 White Blood Count 18.4 TH/MM3 Red Blood Count 5.20 MIL/MM3 Hemoglobin 15.7 GM/DL Hematocrit 45.2 % Mean Corpuscular Volume 87.0 FL Mean Corpuscular Hemoglobin 30.2 PG Mean Corpuscular Hemoglobin Concent 34.7 % Red Cell Distribution Width 15.0 % Platelet Count 392 TH/MM3 Mean Platelet Volume 7.5 FL Neutrophils (%) (Auto) 94.8 % Lymphocytes (%) (Auto) 2.3 % Monocytes (%) (Auto) 2.1 % Eosinophils (%) (Auto) 0.0 % Basophils (%) (Auto) 0.8 % Neutrophils # (Auto) 17.5 TH/MM3 Lymphocytes # (Auto) 0.4 TH/MM3 Monocytes # (Auto) 0.4 TH/MM3 Eosinophils # (Auto) 0.0 TH/MM3 Basophils # (Auto) 0.1 TH/MM3 CBC Comment DIFF FINAL Differential Comment Blood Urea Nitrogen 40 MG/DL Creatinine 1.10 MG/DL Random Glucose 165 MG/DL Calcium Level 8.6 MG/DL Magnesium Level 2.4 MG/DL Sodium Level 138 MEQ/L Potassium Level 4.2 MEQ/L Chloride Level 99 MEQ/L Carbon Dioxide Level 31.5 MEQ/L Anion Gap 8 MEQ/L Estimat Glomerular Filtration Rate 68 ML/MIN MDM Medical Decision Making Medical Screen Exam Complete: Yes Emergency Medical Condition: Yes Medical Record Reviewed: Yes Differential Diagnosis Differential includes COPD exacerbation, pneumonia, Narrative Course Patient had an x-ray 2 days ago which was negative. I think he does require increasing steroids. He is in the process of tapering now and I will give him Solu-Medrol t and start a new course of steroids Diagnosis Primary Impression: COPD exacerbation Scripts Prednisone (Prednisone) 20 Mg Tab 20 MG PO DIRECTED, #24 TAB 0 Refills Take 60 MG daily x 4 days, then 40 MG x 4 days, then 20 MG daily x 4 days. Prov: Jose Luis Barger MD 07/30/17 Disposition: 01 DISCHARGE HOME Condition: Stable Jose Luis Barger MD Jul 30, 2017 09:30
== END 2017-07-30 10:04 | disposition home or self-care (01) ==
LOC: PHED 07:39
DX: J44.1 Chronic obstructive pulmonary disease with (acute) exacerbation (principal); Z87.891 Personal history of nicotine dependence; Z88.5 Allergy status to narcotic agent; Z88.8 Allergy status to other drugs, medicaments and biological substances; Z79.899 Other long term (current) drug therapy
CPT/HCPCS: 80048; 83735; 85025; 94640; 94664; 96374; 99284; J2930

== ENCOUNTER 2017-07-31 20:54 | Inpatient (IN) | payer BC ==
[~2017-07-31] VITALS: Ht 182.9 cm; Wt 86.4 kg
[~2017-07-31 20:54] MED LIST changes: -ADVA500A INH; +ALBUAER3 INH; -FLUT50SP EACH NARE; -PRED10PA2 PO; +PRED20 PO; -ZITH250T PO
[2017-07-31 21:12] VITALS: BP 178/102; PULSE 123; RESP 22; TEMP 98.6; O2SAT 92
[2017-07-31] MEDS ORDERED: SODIUM CHLORIDE 0.9% FLUSH 10 ML FLUSH IVF PRN (21:30)
[2017-07-31] MEDS ORDERED: methylPREDNISolone SOD SUCC 125 MG/2 ML VIAL IV PUSH ONE (21:30)
--- NOTE | 2017-07-31 21:30 | PD ---
HPI Chief Complaint: Respiratory Symptoms Time Seen by Provider: 21:19 Travel History International Travel<30 days: No Contact w/Intl Traveler<30days: No Traveled to known affect area: No History of Present Illness HPI 8-year-old male with history of COPD, seen in the emergency department for the sixth time this week for COPD exacerbation, refused admission on earlier visits , reports that he is not getting any better and if I suggested admission and he would stay. Patient states he is from [place] and that when he comes to [place] usually has a COPD exacerbation. He has been on steroids and taking albuterol treatments without improvement in symptoms. Patient reports shortness of breath at rest, worse with exertion with inability to take a deep breath. He denies cough or hemoptysis. No fevers or chills. 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) Insulin Pump: No Joint Replacement: No Other Surgery: Yes Social History Alcohol Use: Yes (2 times per) Tobacco Use: No (quit 3 years ago) Substance Use: No Allergies-Medications (Allergen,Severity, Reaction): Coded Allergies: codeine (Unverified Allergy, Severe, NAUSEA, 07/31/17) iodine (Unverified Allergy, Severe, Respiratory Failure, 07/31/17) potassium iodide (Unverified Allergy, Severe, Respiratory Failure, 07/31/17) povidone-iodine (Unverified Allergy, Severe, Respiratory Failure, 07/31/17) sodium iodide (Unverified Allergy, Severe, Respiratory Failure, 07/31/17) sodium iodide (Unverified Allergy, Severe, Respiratory Failure, 07/31/17) Reported Meds & Prescriptions Reported Meds & Active Scripts Active Prednisone 20 Mg Tab 20 Mg PO DIRECTED Take 60 MG daily x 4 days, then 40 MG x 4 days, then 20 MG daily x 4 days. Reported Proair Hfa 8.5 GM Inh (Albuterol Sulfate) 90 Mcg/Act Aer 2 Puff INH Q6H PRN 108 mcg/actuation Review of Systems Except as stated in HPI: all other systems reviewed are Neg Physical Exam Narrative GENERAL: Well-developed, well-nourished, accessory muscle use, speaking full sentences. SKIN: Focused skin assessment warm/dry. HEAD: Atraumatic. Normocephalic. EYES: Pupils equal and round. No scleral icterus. No injection or drainage. ENT: Mucous membranes pink and moist. NECK: Trachea midline. No JVD. CARDIOVASCULAR: Tachycardic, rate 120, regular. RESPIRATORY: Accessory muscle use. Speaking full sentences. Poor air movement bilaterally. GASTROINTESTINAL: Abdomen soft, non-tender, nondistended. MUSCULOSKELETAL: No obvious deformities. No clubbing. No cyanosis. No edema. NEUROLOGICAL: Awake and alert. No obvious cranial nerve deficits. Motor grossly within normal limits. Normal speech. PSYCHIATRIC: Appropriate mood and affect; insight and judgment normal. Data Data Last Documented VS Vital Signs Date Time Temp Pulse Resp B/P (MAP) Pulse Ox O2 Delivery O2 Flow Rate FiO2 07/31/17 22:28 120 18 156/85 (108) 97 Nasal Cannula 3.00 07/31/17 21:12 98.6 Orders Orders Complete Blood Count With Diff (07/31/17 21:23) Comprehensive Metabolic Panel (07/31/17 21:23) B-Type Natriuretic Peptide (07/31/17 21:23) Act Partial Throm Time (Ptt) (07/31/17 21:23) Prothrombin Time / Inr (Pt) (07/31/17 21:23) Ckmb (Isoenzyme) Profile (07/31/17 21:23) Troponin I (07/31/17 21:23) Iv Access Insert/Monitor (07/31/17 21:23) Electrocardiogram (07/31/17 21:23) Ecg Monitoring (07/31/17 21:23) Oximetry (07/31/17 21:23) Oxygen Administration (07/31/17 21:23) Chest, Single Ap (07/31/17 21:23) Sodium Chloride 0.9% Flush (Ns Flush) (07/31/17 21:30) Methylprednisolone So Succ Inj (Solumedr (07/31/17 21:30) Albuterol-Ipratropium Neb (Duoneb Neb) (07/31/17 21:30) CKMB (07/31/17 21:30) CKMB% (07/31/17 21:30) Ventilation & Perfusion Scan (07/31/17 ) Aspirin Chew (Aspirin Chew) (07/31/17 22:30) Enoxaparin Inj (Lovenox Inj) (07/31/17 22:45) Labs Laboratory Tests Test 07/31/17 21:30 White Blood Count 19.2 TH/MM3 Red Blood Count 5.42 MIL/MM3 Hemoglobin 15.5 GM/DL Hematocrit 47.2 % Mean Corpuscular Volume 87.0 FL Mean Corpuscular Hemoglobin 28.6 PG Mean Corpuscular Hemoglobin Concent 32.8 % Red Cell Distribution Width 14.9 % Platelet Count 425 TH/MM3 Mean Platelet Volume 7.7 FL Neutrophils (%) (Auto) 95.8 % Lymphocytes (%) (Auto) 2.0 % Monocytes (%) (Auto) 1.0 % Eosinophils (%) (Auto) 0.0 % Basophils (%) (Auto) 1.2 % Neutrophils # (Auto) 18.4 TH/MM3 Lymphocytes # (Auto) 0.4 TH/MM3 Monocytes # (Auto) 0.2 TH/MM3 Eosinophils # (Auto) 0.0 TH/MM3 Basophils # (Auto) 0.2 TH/MM3 CBC Comment DIFF FINAL Differential Comment Prothrombin Time 10.0 SEC Prothromb Time International Ratio 1.0 RATIO Activated Partial Thromboplast Time 21.0 SEC Blood Urea Nitrogen 46 MG/DL Creatinine 1.40 MG/DL Random Glucose 199 MG/DL Total Protein 6.5 GM/DL Albumin 3.3 GM/DL Calcium Level 8.8 MG/DL Alkaline Phosphatase 57 U/L Aspartate Amino Transf (AST/SGOT) 39 U/L Alanine Aminotransferase (ALT/SGPT) 111 U/L Total Bilirubin 0.3 MG/DL Sodium Level 138 MEQ/L Potassium Level 4.1 MEQ/L Chloride Level 99 MEQ/L Carbon Dioxide Level 29.0 MEQ/L Anion Gap 10 MEQ/L Estimat Glomerular Filtration Rate 52 ML/MIN Total Creatine Kinase 384 U/L Creatine Kinase MB 8.9 NG/ML Creatine Kinase MB % 2.3 % Troponin I 0.11 NG/ML B-Type Natriuretic Peptide 45 PG/ML MDM Medical Decision Making Medical Screen Exam Complete: Yes Emergency Medical Condition: Yes Interpretation(s) EKG: Sinus, rate 118, normal axis, normal intervals, nonspecific T-wave abnormality, no ST segment elevation Differential Diagnosis COPD exacerbation, pneumonia, pneumothorax, PE Narrative Course Initial vital signs show heart rate 123, blood pressure 178/102, pulse ox 92% on room air, oral temp of 98.6F. CBC is remarkable for WBC 19.2 with 95.8% neutrophils. The patient has been on steroids this week and this is likely a cheerleading to his leukocytosis. CMP is remarkable for BUN 46, creatinine 1.4, GFR 52, random glucose 199, AST 39 , ALT 111. Total CK is 384. CK-MB is 8.9. CK-MB percent is 2.3. Troponin is 0.11. BNP is 45. Chest x-ray: The lungs are clear. Patient was given 3 DuoNeb treatments and IV Solu-Medrol with moderate improvement in respiratory status. He is still tachypneic and felt short of breath, however he feels as though he is moving air better. Patient's slight elevated troponin could be secondary to hypoxia and respiratory distress, however PE is on the differential. The patient is allergic to iodine, therefore CT pulmonary angiogram cannot be performed. He was given a full dose of aspirin, and VQ scan will be ordered. The patient will also be given one dose of Lovenox here. Case discussed with hospitalist ENRRIQUE Burton. The patient will be admitted to the hospitalist service under Dr. Domingo. Diagnosis Primary Impression: COPD exacerbation Additional Impressions: Hypoxemia Dyspnea Qualified Codes: R06.03 - Acute respiratory distress Elevated troponin Admitting Information Admitting Physician Requests: Admit Marcus Euceda MD Jul 31, 2017 21:30
[2017-07-31 21:43] VITALS: O2SAT 97
[2017-07-31 21:43] LABS: AUTOMATED NEUTROPHIL # 18.4 TH/MM3 (1.8-7.7); BASOPHIL # 0.2 TH/MM3 (0-0.2); BASOPHIL % 1.2 % (0.0-2.0); HEMATOCRIT 47.2 % (39.0-51.0); HEMOGLOBIN 15.5 GM/DL (13.0-17.0); LYMPHOCYTE # 0.4 TH/MM3 (1.0-4.8); MEAN CORPUSCULAR HEMOGLOBIN 28.6 PG (27.0-34.0); MEAN CORPUSCULAR HGB CONC 32.8 % (32.0-36.0); MEAN PLATELET VOLUME 7.7 FL (7.0-11.0); MONOCYTE # 0.2 TH/MM3 (0-0.9); NEUT % 95.8 % (16.0-70.0); PLATELET COUNT 425 TH/MM3 (150-450); RED BLOOD COUNT 5.42 MIL/MM3 (4.50-5.90); RED CELL DISTRIBUTION WIDTH 14.9 % (11.6-17.2); WHITE BLOOD COUNT 19.2 TH/MM3 (4.0-11.0)
[2017-07-31] MEDS: RESP: ALBUTEROL 2.5 MG/IPRATROPIUM 0.5 MG NEB (SCH) INH (21:49)
[2017-07-31 21:50] VITALS: O2SAT 96
[2017-07-31 21:52] LABS: CHLORIDE 99 MEQ/L (98-107); SODIUM (NA) 138 MEQ/L (136-145)
[2017-07-31 21:55] LABS: CALCIUM 8.8 MG/DL (8.5-10.1)
[2017-07-31 21:56] LABS: ALBUMIN 3.3 GM/DL (3.4-5.0); BLOOD UREA NITROGEN 46 MG/DL (7-18); GLUCOSE,RANDOM 199 MG/DL (74-106)
[2017-07-31 21:59] LABS: ALT (GPT) 111 U/L (12-78); AST (GOT) 39 U/L (15-37); GLOMERULAR FILTRATION RATE 52 ML/MIN (>89)
[2017-07-31 22:01] LABS: TOTAL BILIRUBIN ADULT 0.3 MG/DL (0.2-1.0); TOTAL PROTEIN 6.5 GM/DL (6.4-8.2)
[2017-07-31 22:02] LABS: ALKALINE PHOSPHATASE 57 U/L (45-117)
[2017-07-31 22:04] LABS: TROPONIN I 0.11 NG/ML (0.02-0.05)
--- NOTE | 2017-07-31 22:14 | RADRPT ---
EXAM DATE/TIME: 07/31/2017 21:43 [facility] COMPARISON: CHEST SINGLE AP, July 27, 2017, 12:21. INDICATIONS : Shortness of breath, difficulty breathing for 1 week MEDICAL HISTORY : Chronic obstructive pulmonary disease. SURGICAL HISTORY : Cardiac cath ENCOUNTER: Initial ACUITY: 1 week PAIN SCORE: 0/10 LOCATION: Bilateral chest FINDINGS: A single view of the chest demonstrates the lungs to be symmetrically aerated without evidence of mas s, infiltrate or effusion. The cardiomediastinal contours are unremarkable. Osseous structures are intact. CONCLUSION: The lungs are clear. Guillermo Brown MD on July 31, 2017 at 22:13 Board Certified Radiologist. This report was verified electronically.
[2017-07-31 22:28] VITALS: BP 156/85; PULSE 120; RESP 18; O2SAT 97
[2017-07-31] MEDS ORDERED: ASPIRIN 81 MG CHEW TAB CHEW ONE (22:30)
[2017-07-31] MEDS ORDERED: NALOXONE HCL 0.4 MG/ML AMP IV PUSH PRN (22:45)
[2017-07-31] MEDS ORDERED: ONDANSETRON HCL 4 MG/2 ML VIAL IVP PRN (22:45)
[2017-07-31] MEDS ORDERED: RESP: ALBUTEROL 2.5 MG/IPRATROPIUM 0.5 MG NEB (PRN) NEB (22:45)
[2017-07-31] MEDS ORDERED: ENOXAPARIN SODIUM 80 MG/0.8 ML SYRINGE SQ ONE (22:45)
[2017-07-31] MEDS ORDERED: PANTOPRAZOLE SOD 40 MG DELAYED RELEASE TAB PO ONE (22:45)
[2017-07-31] MEDS ORDERED: ACETAMINOPHEN 325 MG TAB PO PRN (22:45)
[2017-07-31] MEDS: SODIUM CHLOR 0.9% 1000 ML INJ 1,000 ML IV SCH (23:11)
[2017-07-31 23:20] LABS: MAGNESIUM 2.2 MG/DL (1.5-2.5)
[2017-08-01] VITALS (21 sets, daily range): BP systolic 135–197; BP diastolic 81–102; PULSE 76–108; RESP 10–39; TEMP 97.6–98.5; O2SAT 94–96
--- NOTE | 2017-08-01 00:42 | RADRPT ---
EXAM DATE/TIME: 07/31/2017 23:33 [facility] COMPARISON: CHEST SINGLE AP, July 31, 2017, 21:43. INDICATIONS : Short of breath. DOSE: 8.1 mCi Tc99m MAA IV 1.5 mCi Tc99m DTPA aerosol MEDICAL HISTORY : Chronic obstructive pulmonary disease. SURGICAL HISTORY : None. ENCOUNTER: Initial ACUITY: 1 week PAIN SCALE: 2/10 LOCATION: chest TECHNIQUE: Following five minutes of tidal breathing of DTPA aerosol, planar images of the lungs were performed in eight projections. The patient was then injected with MAA, and eight-view perfusion scan was perf ormed. FINDINGS: There is patchy distribution of aerosol delivery to both lungs. Clumping of activity in the central a irways may be related to obstructive airways disease. There is focal decreased ventilation in the rig ht midlung zone in a nonsegmental distribution. No other focal ventilatory defects are identified. The perfusion lung scan demonstrates a bandlike area of decreased perfusion in the right midlung zone . There is also mild decreased perfusion in the superior segment of the left lower lobe with no corre sponding ventilatory defect. The most recent chest x-ray demonstrates hyperinflation in a pattern suggesting obstructive airways d isease but no focal air space abnormality is present. CONCLUSION: There is a matched defect in a nonsegmental distribution in the right midlung zone and there is a dwayne tilation/perfusion mismatch in the superior segment of the left lower lobe. Based on PIOPED II criter ia, this is consistent with intermediate probability for PE. Vazquez Kelly MD on August 01, 2017 at 0:35 Board Certified Radiologist. This report was verified electronically.
[2017-08-01] MEDS: methylPREDNISolone SOD SUCC 40 MG/1 ML VIAL IV PUSH SCH ×5 (01:33→23:10)
[2017-08-01] MEDS: SODIUM CHLORIDE 0.9% FLUSH 10 ML FLUSH IV FLUSH PRN ×2 (01:33→06:34)
[2017-08-01] MEDS: RESP: ALBUTEROL 2.5 MG/IPRATROPIUM 0.5 MG NEB (SCH) NEB ×2 (03:35→09:57)
[2017-08-01 03:38] LABS: AUTOMATED NEUTROPHIL # 15.4 TH/MM3 (1.8-7.7); BASOPHIL # 0.1 TH/MM3 (0-0.2); BASOPHIL % 0.7 % (0.0-2.0); EOSINOPHIL % 0.1 % (0.0-4.0); HEMATOCRIT 42.5 % (39.0-51.0); LYMPH % 1.7 % (9.0-44.0); LYMPHOCYTE # 0.3 TH/MM3 (1.0-4.8); MEAN CELL VOLUME 86.9 FL (80.0-100.0); MEAN CORPUSCULAR HEMOGLOBIN 28.6 PG (27.0-34.0); MEAN PLATELET VOLUME 7.7 FL (7.0-11.0); MONO % 0.5 % (0.0-8.0); MONOCYTE # 0.1 TH/MM3 (0-0.9); PLATELET COUNT 357 TH/MM3 (150-450); RED CELL DISTRIBUTION WIDTH 14.9 % (11.6-17.2); WHITE BLOOD COUNT 15.9 TH/MM3 (4.0-11.0)
[2017-08-01 03:45] LABS: CHLORIDE 103 MEQ/L (98-107); SODIUM (NA) 140 MEQ/L (136-145)
[2017-08-01 03:48] LABS: CALCIUM 8.5 MG/DL (8.5-10.1)
[2017-08-01 03:49] LABS: ALBUMIN 2.7 GM/DL (3.4-5.0); BICARBONATE 31.6 MEQ/L (21.0-32.0); BLOOD UREA NITROGEN 45 MG/DL (7-18); GLUCOSE,RANDOM 165 MG/DL (74-106)
[2017-08-01 03:52] LABS: ALT (GPT) 98 U/L (12-78); AST (GOT) 33 U/L (15-37); GLOMERULAR FILTRATION RATE 68 ML/MIN (>89)
[2017-08-01 03:53] LABS: TOTAL BILIRUBIN ADULT 0.2 MG/DL (0.2-1.0)
[2017-08-01 03:54] LABS: TOTAL PROTEIN 5.6 GM/DL (6.4-8.2)
[2017-08-01 03:55] LABS: ALKALINE PHOSPHATASE 45 U/L (45-117); TROPONIN I 0.14 NG/ML (0.02-0.05)
[2017-08-01] MEDS ORDERED: HEPARIN SODIUM - SQ 10,000 UNITS/ML VIAL SQ SCH (06:00)
[2017-08-01] MEDS: SODIUM CHLOR 0.9% 1000 ML INJ 1,000 ML IV SCH ×2 (08:37→17:53)
[2017-08-01] MEDS ORDERED: SODIUM CHLORIDE 0.9% FLUSH 10 ML FLUSH IV FLUSH SCH ×2 (09:00→21:00)
[2017-08-01] MEDS: PANTOPRAZOLE SOD 40 MG DELAYED RELEASE TAB PO SCH (09:04)
[2017-08-01 09:21] LABS: TROPONIN I 0.13 NG/ML (0.02-0.05)
--- NOTE | 2017-08-01 11:01 | HHI.HP ---
HPI Service [facility] Hospitalists Primary Care Physician Non-Staff Admission Diagnosis COPD exacerbation, hypoxia, respiratory distress, elevated troponin Diagnoses: (1) COPD exacerbation Diagnosis: Principal (2) Elevated troponin Diagnosis: Principal (3) Dyspnea Diagnosis: Secondary (4) Hypoxemia Diagnosis: Principal Chief Complaint: Respiratory distress Travel History International Travel<30 Days: No Contact w/Intl Traveler <30 Da: No Traveled to Known Affected Are: No History of Present Illness Patient is a 62-year-old male with history of COPD who was seen in the emergency department for "6TH time" this week for COPD exacerbation. Patient had refused admission on earlier visits. He reported that he was not getting any better and patient was therefore made a full admission this time. Patient is from [place] usually comes to [place] and usually gets a COPD exacerbation. Had been taking some steroids. Some albuterol treatments has not really had improvement he has had increasing shortness of breath at rest worse with exertion with inability to take a deep breath. Denies any hemoptysis denies any fevers or chills. Patient's troponins were found to be positive Had a VQ scan which is intermediate probability for pulmonary emboli Patient will be transferred to the main [place] for evaluation by cardiology and pulmonary and hematology due to the pulmonary embolism Review of Systems Constitutional: COMPLAINS OF: Fatigue, DENIES: Diaphoretic episodes, Fever, Weight gain, Weight loss, Chills, Dizziness, Change in appetite, Night Sweats Endocrine: DENIES: Heat/cold intolerance, Polydipsia, Polyuria, Polyphagia Eyes: DENIES: Blurred vision, Diplopia, Eye inflammation, Eye pain, Vision loss , Photosensitivity, Double Vision Ears, nose, mouth, throat: DENIES: Tinnitus, Hearing loss, Vertigo, Nasal discharge, Oral lesions, Throat pain, Hoarseness, Ear Pain, Running Nose, Epistaxis, Sinus Pain, Toothache Respiratory: COMPLAINS OF: Cough, Wheezing, Sputum production, Shortness of breath, DENIES: Apneas, Snoring, Hemoptysis Cardiovascular: COMPLAINS OF: Palpitations, Dyspnea on Exertion, DENIES: Chest pain, Syncope, PND, Lower Extremity Edema, Orthopnea, Claudication Gastrointestinal: DENIES: Abdominal pain, Black stools, Bloody stools, Constipation, Diarrhea, Nausea, Vomiting, Difficulty Swallowing, Anorexia Musculoskeletal: DENIES: Joint pain, Muscle aches, Stiffness, Joint Swelling, Back pain, Neck pain Integumentary: DENIES: Abnormal pigmentation, Nail changes, Pruritus, Rash Hematologic/lymphatic: DENIES: Bruising, Lymphadenopathy Immunologic/allergic: DENIES: Eczema, Urticaria Neurologic: DENIES: Abnormal gait, Headache, Localized weakness, Paresthesias, Seizures, Speech Problems, Tremor, Poor Balance Psychiatric: COMPLAINS OF: Anxiety, DENIES: Confusion, Mood changes, Depression , Hallucinations, Agitation, Suicidal Ideation, Homicidal Ideation, Delusions Except as stated in HPI: all other systems reviewed are Neg Past Family Social History Past Medical History COPD exacerbation Tobacco abuse Anxiety Current inguinal hernia Past Surgical History Left eye repair tonsillectomy Reported Medications Reported Meds & Active Scripts Active Prednisone 20 Mg Tab 20 Mg PO DIRECTED Take 60 MG daily x 4 days, then 40 MG x 4 days, then 20 MG daily x 4 days. Reported Proair Hfa 8.5 GM Inh (Albuterol Sulfate) 90 Mcg/Act Aer 2 Puff INH Q6H PRN 108 mcg/actuation Allergies: Coded Allergies: codeine (Unverified Allergy, Severe, NAUSEA, 07/31/17) iodine (Unverified Allergy, Severe, Respiratory Failure, 07/31/17) potassium iodide (Unverified Allergy, Severe, Respiratory Failure, 07/31/17) povidone-iodine (Unverified Allergy, Severe, Respiratory Failure, 07/31/17) sodium iodide (Unverified Allergy, Severe, Respiratory Failure, 07/31/17) sodium iodide (Unverified Allergy, Severe, Respiratory Failure, 07/31/17) Active Ordered Medications Current Medications Sodium Chloride (NS Flush) 2 ml UNSCH PRN IVF FLUSH AFTER USING IV ACCESS; Start 07/31/17 at 21:30 Methylprednisolone Sodium Succinate (SoluMEDROL INJ) 125 mg ONCE ONCE IV PUSH Last administered on 07/31/17at 21:51; Start 07/31/17 at 21:30; Stop 07/31/17 at 21: 36; Status DC Albuterol/ Ipratropium (Duoneb Neb) 1 ampule Q15M INH Last administered on at 21:49; Start 07/31/17 at 21:30; Stop 07/31/17 at 22:01; Status DC Aspirin (Aspirin Chew) 324 mg ONCE ONCE CHEW Last administered on 07/31/17at 22: 26; Start 07/31/17 at 22:30; Stop 07/31/17 at 22:31; Status DC Enoxaparin Sodium (Lovenox Inj) 80 mg ONCE ONCE SQ Last administered on at 23:10; Start 07/31/17 at 22:45; Stop 07/31/17 at 22:46; Status DC Sodium Chloride 1,000 ml @ 100 mls/hr Q10H IV Last administered on 07/31/17at 23 :11; Start 07/31/17 at 22:37 Sodium Chloride (NS Flush) 2 ml UNSCH PRN IV FLUSH FLUSH AFTER USING IV ACCESS Last administered on 08/01/17at 06:34; Start 07/31/17 at 22:45 Sodium Chloride (NS Flush) 2 ml BID IV FLUSH ; Start 08/01/17 at 09:00 Acetaminophen (Tylenol) 650 mg Q4H PRN PO TEMP > 100.4; Start 07/31/17 at 22:45 Ondansetron HCl (Zofran Inj) 4 mg Q6H PRN IVP NAUSEA OR VOMITING; Start at 22:45 Heparin Sodium (Porcine) (Heparin Inj) 5,000 units Q8HR SQ ; Start 08/01/17 at 06 :00; Stop 08/01/17 at 06:00; Status DC Naloxone HCl (Narcan Inj) 0.4 mg UNSCH PRN IV PUSH SEE LABEL COMMENTS; Start at 22:45 Albuterol/ Ipratropium (Duoneb Neb) 1 ampule Q2HR NEB PRN NEB SOB/WHEEZING; Start 07/31/17 at 22:45 Albuterol/ Ipratropium (Duoneb Neb) 1 ampule Q6HR NEB NEB Last administered on 08/01/17at 09:57; Start 08/01/17 at 04:00 Methylprednisolone Sodium Succinate (SoluMEDROL INJ) 40 mg Q6HR IV PUSH Last administered on 08/01/17at 06:33; Start 08/01/17 at 00:00 Pantoprazole Sodium (Protonix) 40 mg DAILY PO Last administered on 08/01/17at 09: 04; Start 08/01/17 at 09:00 Pantoprazole Sodium (Protonix) 40 mg ONCE ONCE PO Last administered on at 23:10; Start 07/31/17 at 22:45; Stop 07/31/17 at 22:52; Status DC Enoxaparin Sodium (Lovenox Inj) 80 mg Q12H SQ ; Start 08/01/17 at 11:00 Family History Denies any medical issues Possibly some high blood pressure Social History Denies any tobacco states he quit 3-4 years Positive alcohol use Physical Exam Vital Signs Vital Signs Date Time Temp Pulse Resp B/P (MAP) Pulse Ox O2 Delivery O2 Flow Rate FiO2 08/01/17 09:58 96 Nasal Cannula 2.00 08/01/17 08:00 98.3 80 10 96 08/01/17 08:00 Nasal Cannula 3.00 08/01/17 07:00 80 35 96 08/01/17 05:21 96 Nasal Cannula 3.00 08/01/17 05:00 86 13 95 08/01/17 04:00 92 16 95 08/01/17 03:22 98.0 96 24 142/90 (107) 96 08/01/17 03:00 90 15 96 08/01/17 02:00 94 14 95 08/01/17 01:27 96 Nasal Cannula 3.00 08/01/17 01:15 104 33 151/87 (108) 96 08/01/17 01:01 109 18 157/97 (117) 97 Nasal Cannula 3.00 08/01/17 01:00 97.8 108 34 197/102 (133) 95 07/31/17 22:28 120 18 156/85 (108) 97 Nasal Cannula 3.00 07/31/17 21:50 96 Nasal Cannula 2.00 07/31/17 21:43 97 Nasal Cannula 2.00 07/31/17 21:43 97 Nasal Cannula 2.00 07/31/17 21:43 98 Nasal Cannula 2.00 07/31/17 21:12 98.6 123 22 178/102 (127) 92 Physical Exam GENERAL: This is a well-nourished, well-developed patient, in no apparent distress. SKIN: No rashes, ecchymoses or lesions. Cool and dry. HEAD: Atraumatic. Normocephalic. No temporal or scalp tenderness. EYES: Pupils equal round and reactive. Extraocular motions intact. No scleral icterus. No injection or drainage. ENT: Nose without bleeding, purulent drainage or septal hematoma. Throat without erythema, tonsillar hypertrophy or exudate. Uvula midline. Airway patent. NECK: Trachea midline. No JVD or lymphadenopathy. Supple, nontender, no meningeal signs. CARDIOVASCULAR: Regular rate and rhythm without murmurs, gallops, or rubs. S1- S2 no S3 or S4 RESPIRATORY: Rhonchi and wheezes bilaterally, somewhat tight. Breath sounds equal bilaterally. No rales GASTROINTESTINAL: Abdomen soft, non-tender, nondistended. No hepato-splenomegaly , or palpable masses. No guarding. MUSCULOSKELETAL: Extremities without clubbing, cyanosis, or edema. No joint tenderness, effusion, or edema noted. No calf tenderness. Negative Homans sign bilaterally. NEUROLOGICAL: Awake and alert. Cranial nerves II through XII intact. Motor and sensory grossly within normal limits. Five out of 5 muscle strength in all muscle groups. Normal speech. Insight and judgment is good Mood and behavior are appropriate Laboratory Laboratory Tests Test 07/31/17 21:30 08/01/17 03:30 08/01/17 08:58 White Blood Count 19.2 15.9 Red Blood Count 5.42 4.90 Hemoglobin 15.5 14.0 Hematocrit 47.2 42.5 Mean Corpuscular Volume 87.0 86.9 Mean Corpuscular Hemoglobin 28.6 28.6 Mean Corpuscular Hemoglobin Concent 32.8 33.0 Red Cell Distribution Width 14.9 14.9 Platelet Count 425 357 Mean Platelet Volume 7.7 7.7 Neutrophils (%) (Auto) 95.8 97.0 Lymphocytes (%) (Auto) 2.0 1.7 Monocytes (%) (Auto) 1.0 0.5 Eosinophils (%) (Auto) 0.0 0.1 Basophils (%) (Auto) 1.2 0.7 Neutrophils # (Auto) 18.4 15.4 Lymphocytes # (Auto) 0.4 0.3 Monocytes # (Auto) 0.2 0.1 Eosinophils # (Auto) 0.0 0.0 Basophils # (Auto) 0.2 0.1 CBC Comment DIFF FINAL DIFF FINAL Differential Comment Prothrombin Time 10.0 Prothromb Time International Ratio 1.0 Activated Partial Thromboplast Time 21.0 Blood Urea Nitrogen 46 45 Creatinine 1.40 1.10 Random Glucose 199 165 Total Protein 6.5 5.6 Albumin 3.3 2.7 Calcium Level 8.8 8.5 Magnesium Level 2.2 Alkaline Phosphatase 57 45 Aspartate Amino Transf (AST/SGOT) 39 33 Alanine Aminotransferase (ALT/SGPT) 111 98 Total Bilirubin 0.3 0.2 Sodium Level 138 140 Potassium Level 4.1 4.7 Chloride Level 99 103 Carbon Dioxide Level 29.0 31.6 Anion Gap 10 5 Estimat Glomerular Filtration Rate 52 68 Total Creatine Kinase 384 218 185 Creatine Kinase MB 8.9 Creatine Kinase MB % 2.3 Troponin I 0.11 0.14 0.13 B-Type Natriuretic Peptide 45 Result Diagram: 08/01/17 0330 08/01/17 0330 Imaging Last Impressions Chest X-Ray 07/31/172122 Signed Impressions: Service Date/Time: Monday, July 31, 2017 21:43 - CONCLUSION: The lungs are clear. Guillermo Brown MD Lung Scan-V Nuclear Medicine 07/31/17 0000 Signed Impressions: Service Date/Time: Monday, July 31, 2017 23:33 - CONCLUSION: There is a matched defect in a nonsegmental distribution in the right midlung zone and there is a ventilation/perfusion mismatch in the superior segment of the left lower lobe. Based on PIOPED II criteria, this is consistent with intermediate probability for PE. Vazquez Kelly MD Capsarayi VTE Risk Assessment Caprini VTE Risk Assessment: Mod/High Risk (score >= 2) Caprini Risk Assessment Model Point Value = 1 Point Value = 2 Point Value = 3 Point Value = 5 Age 41-60 Minor surgery BMI > 25 kg/m2 Swollen legs Varicose veins or History of unexplained or recurrent spontaneous Oral contraceptives or hormone replacement Sepsis (< 1 month) Serious lung disease, including pneumonia (< 1 month) Abnormal pulmonary function Acute myocardial infarction Congestive heart failure (< 1 month) History of inflammatory bowel disease Medical patient at bed rest Age 61-74 Arthroscopic surgery Major open surgery (> 45 min) Laparoscopic surgery (> 45 min) Malignancy Confined to bed (> 72 hours) Immobilizing plaster cast Central venous access Age >= 75 History of VTE Family history of VTE Factor V Leiden Prothrombin [id number] Lupus anticoagulant Anticardiolipin antibodies Elevated serum homocysteine Heparin-induced thrombocytopenia Other congenital or acquired thrombophilia Stroke (< 1 month) Elective arthroplasty Hip, pelvis, or leg fracture Acute spinal cord injury (< 1 month) Prophylaxis Regimen Total Risk Factor Score Risk Level Prophylaxis Regimen 0-1 Low Early ambulation 2 Moderate Order ONE of the following: *Sequential Compression Device (SCD) *Heparin 5000 units SQ BID 3-4 Higher Order ONE of the following medications: *Heparin 5000 units SQ TID *Enoxaparin/Lovenox 40 mg SQ daily (WT < 150 kg, CrCl > 30 mL/min) *Enoxaparin/Lovenox 30 mg SQ daily (WT < 150 kg, CrCl > 10-29 mL/min) *Enoxaparin/Lovenox 30 mg SQ BID (WT < 150 kg, CrCl > 30 mL/min) AND/OR *Sequential Compression Device (SCD) 5 or more Highest Order ONE of the following medications: *Heparin 5000 units SQ TID (Preferred with Epidurals) *Enoxaparin/Lovenox 40 mg SQ daily (WT < 150 kg, CrCl > 30 mL/min) *Enoxaparin/Lovenox 30 mg SQ daily (WT < 150 kg, CrCl > 10-29 mL/min) *Enoxaparin/Lovenox 30 mg SQ BID (WT < 150 kg, CrCl > 30 mL/min) AND *Sequential Compression Device (SCD) Assessment and Plan Assessment and Plan COPD exacerbation will continue on steroids and add Mucinex and DuoNeb's -- consult pulmonary positive troponins will consult cardiology-we will transfer to PSYCHIATRIC --patient may need cardiac catheterization Iodine allergy may need allergy protocol to have cardiac catheterization and/or CTA of chest Intermediate probability VQ scan-- consult pulmonary Lovenox subcu twice daily Discussed with cardiology will need transfer to PSYCHIATRIC so that any intervention can be done Case management consult DVT prophylaxis with Lovenox GI prophylaxis with Pepcid Code Status Full code Discussed Condition With RN and patient and cardiology Physician Certification 2 Midnight Certification Type: Admission for Inpatient Services Order for Inpatient Services The services are ordered in accordance with Medicare regulations or non- Medicare payer requirements, as applicable. In the case of services not specified as inpatient-only, they are appropriately provided as inpatient services in accordance with the 2-midnight benchmark. Estimated LOS (days): 2 days is the estimated time the patient will need to remain in the hospital, assuming treatment plan goals are met and no additional complications. Post-Hospital Plan: Not yet determined Problem Qualifiers (1) Dyspnea: Qualified Codes: R06.03 - Acute respiratory distress Dioni Freed DO Aug 01, 2017 11:01
[2017-08-01] MEDS ORDERED: METOCLOPRAMIDE HCL 10 MG/2 ML VIAL IV PUSH PRN (11:15)
[2017-08-01] MEDS ORDERED: BISACODYL 10 MG SUPP RECTAL PRN (11:15)
[2017-08-01] MEDS ORDERED: MORPHINE SULFATE 2 MG/ML INJ IV PUSH PRN ×2 (11:15)
[2017-08-01] MEDS ORDERED: SODIUM CHLORIDE 0.9% FLUSH 10 ML FLUSH IV FLUSH PRN ×2 (11:15)
[2017-08-01] MEDS ORDERED: NALOXONE HCL 0.4 MG/ML AMP IV PUSH PRN (11:15)
[2017-08-01] MEDS ORDERED: ACETAMINOPHEN 325 MG TAB PO PRN ×2 (11:15)
[2017-08-01] MEDS ORDERED: SENNOSIDES 8.6 MG TAB PO PRN (11:15)
[2017-08-01] MEDS ORDERED: LACTULOSE SYRUP 20 GM/30 ML CUP PO PRN (11:15)
[2017-08-01] MEDS ORDERED: MAGNESIUM HYDROXIDE SUSP 30 ML CUP PO PRN (11:15)
[2017-08-01] MEDS: LEVOFLOXACIN 750 MG TAB PO SCH (11:54)
[2017-08-01] MEDS: ENOXAPARIN SODIUM 80 MG/0.8 ML SYRINGE SQ SCH ×2 (11:55→23:00)
[2017-08-01] MEDS: BUDESONIDE-FORMOTEROL 160/4.5 MCG INHALER INH SCH ×2 (12:00→20:14)
[2017-08-01] MEDS: guaiFENesin E.R. 600 MG TAB PO SCH ×2 (12:06→20:11)
--- NOTE | 2017-08-01 13:43 | EKG ---
Date Performed: 08/01/2017 Time Performed: 08:45:39 PTAGE: 62 years EKG: Sinus rhythm WITH SHORT PA INTERVAL NONSPECIFIC ST & T-WAVE ABNORMALITY BORDERLINE ECG PREVIOUS TRACING : 08/01/2017 03.32 No significant change from previous tracing noted. DOCTOR: Estuardo Mayfield Interpretating Date/Time 08/01/2017 13:40:28
[2017-08-01] MEDS: ONDANSETRON HCL 4 MG/2 ML VIAL IVP PRN (14:04)
[2017-08-01] MEDS: RESP: ALBUTEROL 2.5 MG/IPRATROPIUM 0.5 MG NEB (SCH) INH ×2 (15:14→21:19)
--- NOTE | 2017-08-01 16:11 | RADRPT ---
EXAM DATE/TIME: 08/01/2017 15:33 [facility] COMPARISON: No previous studies available for comparison. INDICATIONS : Bilateral leg swelling. MEDICAL HISTORY : Chronic obstructive pulmonary disease. Dyspnea. Inguinal hernia. SURGICAL HISTORY : None. ENCOUNTER: Initial ACUITY: 1 day PAIN SCORE: 2/10 LOCATION: Bilateral legs. TECHNIQUE: Venous ultrasound of the left and right leg was performed from the inguinal ligament to the proximal calf. Real-time, color Doppler and spectral tracing, compression and augmentation techniques were us ed. FINDINGS: RIGHT LEG: There is normal compressibility of the deep venous system from the inguinal region to the proximal ca lf. No echogenic clot is seen in the lumen of the common femoral, femoral, popliteal, and posterior tibial veins. There is a normal response of the venous system to proximal and distal augmentation an d respiration. LEFT LEG: There is normal compressibility of the deep venous system from the inguinal region to the proximal ca lf. No echogenic clot is seen in the lumen of the common femoral, femoral, popliteal, and posterior tibial veins. There is a normal response of the venous system to proximal and distal augmentation an d respiration. CONCLUSION: No evidence of DVT. Pete Laureano MD on August 01, 2017 at 16:09 Board Certified Radiologist. This report was verified electronically.
--- NOTE | 2017-08-01 16:36 | MB ---
cc: Farhat Ward MD DATE OF CONSULT: 08/01/2017 ATTENDING PHYSICIAN: Dr. Freed REASON FOR CONSULT: Hematology consult to render opinion regarding patient with possible pulmonary embolism. HISTORY OF PRESENT ILLNESS: The patient is a 62-year-old male who presented to the hospital with worsening shortness of breath. He is from [place] and spends his winter in [place]. He says he usually develops shortness of breath when he comes to [place]. His symptoms started a week ago. He came to the emergency room multiple times but he left because he had to wait too long. His symptoms were progressively getting worse and then he came back in. He has been receiving prednisone 10 mg daily with albuterol without improvement of his symptoms. He denies any chest pain. He denies any pleuritic pain. He denies any cough. He occasionally has mild discomfort in the mid-sternal area. He stated he had a cardiac catheterization about 1-1/2 years ago which was unremarkable. When he came in, he had a VQ scan which was intermediate probably. He was started in Lovenox. He denies any personal history of family history of thromboembolic event. The patient was also noted to have elevated troponin. He is in the process of being transferred to the main [place] to be evaluated by motorsports technician. He denies any fever or chills. He denies any nausea, vomiting, abdominal pain, dysuria or hematuria. PAST MEDICAL HISTORY: 1. Chronic obstructive pulmonary disease. 2. Anxiety. PAST SURGICAL HISTORY: 1. Inguinal hernia. 2. Left eye surgery. 3. Tonsillectomy. 4. Cardiac catheterization about 1-1/2 years ago. FAMILY HISTORY: No history of blood clots. He has two brothers and one sister; he has a son, all healthy. SOCIAL HISTORY: He has a 37 pack-year smoking history, quit about 4 years ago. He has occasional alcohol. ALLERGIES: CODEINE. POTASSIUM. SODIUM IODIDE. IODINE, but he is not very sure. Stated that he had allergy to iodine when he was a child. Lately he has been eating shellfish without any problem. MEDICATIONS: 1. Sandra-Colace. 2. DuoNeb. 3. Guaifenesin. 4. Symbicort. 5. Levaquin. 6. Lovenox. 7. Protonix. 8. Solu-Medrol. REVIEW OF SYSTEMS: CONSTITUTIONAL: As above. EYES: Negative. ENT: Negative. CARDIOVASCULAR: As above. RESPIRATORY: As above. GASTROINTESTINAL: Denies nausea, vomiting, diarrhea or abdominal pain. GENITOURINARY: Denies dysuria or hematuria. MUSCULOSKELETAL: Negative. HEMATOLOGY: As above. ENDOCRINE: Negative. DERMATOLOGIC: Negative. PSYCHIATRIC: Negative. NEUROLOGIC: Negative. PHYSICAL EXAMINATION: VITAL SIGNS: Temperature 98.5, blood pressure 164/94, O2 saturation 94% on 2 liters nasal cannula. GENERAL: He is alert and oriented x 3, in no acute distress. HEENT: Atraumatic, normocephalic. Pupils equal, round, reactive to light. Extraocular muscles are intact. No scleral icterus. Oropharynx - dry mucosa, no lesion, no thrush, no mucositis. NECK: No thyromegaly. No palpable mass. LYMPHATICS: No palpable cervical, clavicular or axillary lymph nodes. CARDIOVASCULAR: Regular S1 and S2 with no murmur. LUNGS: Mild wheezing, otherwise clear. No crackles noted. ABDOMEN: Soft, nontender. I could not palpate liver or spleen. EXTREMITY EXAM: No cyanosis, no clubbing or edema. BACK: No paravertebral tenderness. SKIN: No rash or petechiae. NEUROLOGIC EXAM: Nonfocal. LABORATORY DATA: Creatinine 1.1. Troponin is 0.13. ASSESSMENT: 1. Questionable pulmonary embolism. He had history of chronic obstructive pulmonary disease with frequent exacerbation. He started having shortness of breath again for the last one week. He has no chest pain. He has no lower extremity edema. He had a VQ scan done which is intermediate probably for pulmonary emboli. He has no personal history or family history of thromboembolic event. He was started on Lovenox. It is unclear if the patient indeed has pulmonary embolism. I think he will need a CT angiogram for further evaluation. CT angiogram was not done because there is a questionable history of iodine allergy. The patient stated that he was allergic to shellfish when he was a child; however, lately he has been eating shellfish without any problem. He also stated that he had a CT scan done with contrast about two years ago in [place] without any problem. I doubt that he has contrast allergy. We will arrange for him to have the CT angiogram done when he is transferred to the main campus, besides he has already been on high-dose steroids since he came in. I think it would be safe to get a CT angiogram. If it is negative, then he can stop the anticoagulation. I am also going to have him get an ultrasound of the lower extremities to rule out deep venous thrombosis. 2. Chronic obstructive pulmonary disease exacerbation. He has had frequent chronic obstructive pulmonary disease exacerbation in the past. Chest x-ray did not show any acute changes. He is now on antibiotics and steroids. His symptoms have improved. 3. Elevated troponin. He stated that he had a cardiac catheterization about 1-1/2 years ago in [place] which was unremarkable. He has occasional mid-sternal discomfort and back pain but denies any pain at this time. He is awaiting cardiology evaluation. RECOMMENDATIONS: 1. Get ultrasound of the bilateral lower extremities. 2. Arrange for CT angiogram when he is transferred over to the main campus. 3. Continue Lovenox for now. Thank you, Dr. Freed, for asking me to see this patient. MD PEPE Gomez/SB , 04:05 PM , 04:34 PM [facility]
--- NOTE | 2017-08-01 18:32 | EKG ---
Date Performed: 08/01/2017 Time Performed: 03:32:36 PTAGE: 62 years EKG: Sinus rhythm WITH SHORT ND INTERVAL NONSPECIFIC T-WAVE ABNORMALITY BORDERLINE ECG PREVIOUS TRACING : 07/31/2017 21.41 Compared to previous tracing, nonspecific T wave abnormalit y is now more evident. DOCTOR: Estuardo Mayfield Interpretating Date/Time 08/01/2017 18:30:53
[2017-08-01 18:34] LABS: D-DIMER LESS THAN 0.19 MG/L FEU (0.00-0.50)
[2017-08-01] MEDS: oxyCODONE/ACETAMINOPHEN 5 MG/325 MG TAB PO PRN (20:11)
[2017-08-01] MEDS: DOCUSATE SODIUM 50 MG/SENNA 8.6 MG TAB PO SCH (20:11)
[2017-08-01] MEDS: SODIUM CHLORIDE 0.9% FLUSH 10 ML FLUSH IV FLUSH SCH (20:14)
[2017-08-01 20:26] LABS: FIBRINOGEN 135 mg/dL (227-377)
--- NOTE | 2017-08-01 21:19 | EKG ---
Date Performed: 07/31/2017 Time Performed: 21:41:28 PTAGE: 62 years EKG: SINUS TACHYCARDIA WITH SHORT SD INTERVAL NONSPECIFIC ST & T-WAVE ABNORMALITY ABNORMAL RHYTH M ECG PREVIOUS TRACING : 07/16/2016 07.01 Compared to previous tracing, heart rate has increased. DOCTOR: Estuardo Mayfield Interpretating Date/Time 08/01/2017 21:18:40
[2017-08-02] VITALS (12 sets, daily range): BP systolic 136–150; BP diastolic 77–88; PULSE 74–104; RESP 12–28; TEMP 97.6–98.6; O2SAT 93–98
[2017-08-02] MEDS: RESP: ALBUTEROL 2.5 MG/IPRATROPIUM 0.5 MG NEB (SCH) INH ×4 (03:22→21:07)
[2017-08-02] MEDS: SODIUM CHLOR 0.9% 1000 ML INJ 1,000 ML IV SCH ×2 (04:12→14:37)
[2017-08-02] MEDS: methylPREDNISolone SOD SUCC 40 MG/1 ML VIAL IV PUSH SCH ×4 (04:13→23:28)
[2017-08-02 05:24] LABS: AUTOMATED NEUTROPHIL # 15.5 TH/MM3 (1.8-7.7); BASOPHIL # 0.1 TH/MM3 (0-0.2); BASOPHIL % 0.4 % (0.0-2.0); HEMATOCRIT 40.7 % (39.0-51.0); HEMOGLOBIN 13.3 GM/DL (13.0-17.0); LYMPH % 2.2 % (9.0-44.0); LYMPHOCYTE # 0.4 TH/MM3 (1.0-4.8); MEAN CELL VOLUME 87.8 FL (80.0-100.0); MEAN CORPUSCULAR HEMOGLOBIN 28.6 PG (27.0-34.0); MEAN CORPUSCULAR HGB CONC 32.5 % (32.0-36.0); MEAN PLATELET VOLUME 7.7 FL (7.0-11.0); MONOCYTE # 0.5 TH/MM3 (0-0.9); NEUT % 94.4 % (16.0-70.0); PLATELET COUNT 290 TH/MM3 (150-450); RED BLOOD COUNT 4.64 MIL/MM3 (4.50-5.90); RED CELL DISTRIBUTION WIDTH 14.8 % (11.6-17.2); WHITE BLOOD COUNT 16.5 TH/MM3 (4.0-11.0)
[2017-08-02 05:42] LABS: CHLORIDE 99 MEQ/L (98-107); SODIUM (NA) 139 MEQ/L (136-145)
[2017-08-02 05:46] LABS: BICARBONATE 35.5 MEQ/L (21.0-32.0); CALCIUM 8.2 MG/DL (8.5-10.1)
[2017-08-02 05:47] LABS: GLUCOSE,RANDOM 144 MG/DL (74-106); MAGNESIUM 2.5 MG/DL (1.5-2.5)
[2017-08-02 05:50] LABS: ALBUMIN 2.4 GM/DL (3.4-5.0); ALT (GPT) 76 U/L (12-78); AST (GOT) 17 U/L (15-37); BLOOD UREA NITROGEN 34 MG/DL (7-18); PHOSPHORUS 4.1 MG/DL (2.5-4.9)
[2017-08-02 05:53] LABS: ALKALINE PHOSPHATASE 41 U/L (45-117); GLOMERULAR FILTRATION RATE 86 ML/MIN (>89); TOTAL PROTEIN 5.1 GM/DL (6.4-8.2)
[2017-08-02 06:03] LABS: TOTAL BILIRUBIN ADULT 0.5 MG/DL (0.2-1.0)
[2017-08-02] MEDS ORDERED: diphenhydrAMINE HCL 50 MG/ML VIAL IV PUSH PRN (08:15)
[2017-08-02] MEDS: SODIUM CHLORIDE 0.9% FLUSH 10 ML FLUSH IV FLUSH SCH ×2 (08:29→19:27)
[2017-08-02] MEDS: BUDESONIDE-FORMOTEROL 160/4.5 MCG INHALER INH SCH ×2 (08:30→19:27)
[2017-08-02] MEDS: guaiFENesin E.R. 600 MG TAB PO SCH ×2 (08:31→19:27)
[2017-08-02] MEDS: PANTOPRAZOLE SOD 40 MG DELAYED RELEASE TAB PO SCH (08:31)
[2017-08-02] MEDS: ONDANSETRON HCL 4 MG/2 ML VIAL IVP PRN (08:32)
[2017-08-02] MEDS: DOCUSATE SODIUM 50 MG/SENNA 8.6 MG TAB PO SCH ×2 (08:32→19:27)
--- NOTE | 2017-08-02 08:37 | PD.CONS ---
HPI Consult Requested By Primary Care Physician Non-Staff History of Present Illness 62-year-old male with a past medical history of COPD who presented with shortness of breath. Patient has presented to the ED multiple times this week for COPD exacerbation previously refused admission but has been admitted this time. He has been given nebulizers and IV steroids and feels like he is moving air. Breathing is much improved today. He states he does get dyspneic on exertion, but feels like this is secondary to COPD. He denies any history of heart disease. He has been now visiting from [place] for the past 3 weeks. He states that when he was back at [place] and he would get intermittent episodes of upper abdominal "indigestion". He denies any exertional chest pain. He quit smoking 4 years ago. EKG showed nonspecific T-wave changes. Troponins were minimally elevated at 0.14, 0.13, 0.10. He is agreeable to stress testing today. Review of Systems Negative except as stated in the history of present illness Past Family Social History Allergies: Coded Allergies: codeine (Unverified Allergy, Severe, NAUSEA, 07/31/17) iodine (Unverified Allergy, Severe, Respiratory Failure, 07/31/17) potassium iodide (Unverified Allergy, Severe, Respiratory Failure, 07/31/17) povidone-iodine (Unverified Allergy, Severe, Respiratory Failure, 07/31/17) sodium iodide (Unverified Allergy, Severe, Respiratory Failure, 07/31/17) sodium iodide (Unverified Allergy, Severe, Respiratory Failure, 07/31/17) Past Medical History COPD Past Surgical History Left eye repair tonsillectomy Reported Medications Reported Meds & Active Scripts Active Prednisone 20 Mg Tab 20 Mg PO DIRECTED Take 60 MG daily x 4 days, then 40 MG x 4 days, then 20 MG daily x 4 days. Reported Proair Hfa 8.5 GM Inh (Albuterol Sulfate) 90 Mcg/Act Aer 2 Puff INH Q6H PRN 108 mcg/actuation Active Ordered Medications Current Medications Medications (Trade) Dose Ordered Sig/Yanelis Route Start Time Stop Time Status Last Admin Sodium Chloride 1,000 ml @ 100 mls/hr Q10H IV 07/31/17 22:37 08/02/17 04:12 (Duoneb Neb) 1 ampule Q2HR NEB PRN NEB 07/31/17 22:45 (SoluMEDROL INJ) 40 mg Q6HR IV PUSH 08/01/17 00:00 08/02/17 04:13 (Protonix) 40 mg DAILY PO 08/01/17 09:00 08/01/17 09:04 (Lovenox Inj) 80 mg Q12H SQ 08/01/17 11:00 08/01/17 11:55 (Mucinex Er) 600 mg BID PO 08/01/17 12:00 08/01/17 20:11 (Tylenol) 650 mg Q4H PRN PO 08/01/17 11:15 (Zofran Inj) 4 mg Q6H PRN IVP 08/01/17 11:15 08/01/17 14:04 (Reglan Inj) 5 mg Q6H PRN IV PUSH 08/01/17 11:15 (Tylenol) 650 mg Q6H PRN PO 08/01/17 11:15 (Percocet 5-325 Mg) 1 tab Q6H PRN PO 08/01/17 11:15 08/01/17 20:11 (Percocet 10-325 Mg) 1 tab Q6H PRN PO 08/01/17 11:15 (Morphine Inj) 2 mg Q3H PRN IV PUSH 08/01/17 11:15 (Morphine Inj) 4 mg Q3H PRN IV PUSH 08/01/17 11:15 (Narcan Inj) 0.4 mg UNSCH PRN IV PUSH 08/01/17 11:15 (Sandra-Colace) 1 tab BID PO 08/01/17 21:00 08/01/17 20:11 (Milk Of Magnesia Liq) 30 ml Q12H PRN PO 08/01/17 11:15 (Senokot) 17.2 mg Q12H PRN PO 08/01/17 11:15 (Dulcolax Supp) 10 mg DAILY PRN RECTAL 08/01/17 11:15 (Lactulose Liq) 30 ml DAILY PRN PO 08/01/17 11:15 (NS Flush) 2 ml BID IV FLUSH 08/01/17 21:00 08/01/17 20:14 (NS Flush) 2 ml UNSCH PRN IV FLUSH 08/01/17 11:15 (Duoneb Neb) 1 ampule Q6HR NEB INH 08/01/17 16:00 08/02/17 03:22 (Symbicort 160-4.5 Mcg Inh) 2 puff Q12HR INH 08/01/17 12:00 08/01/17 20:14 (Levaquin) 750 mg Q24H PO 08/01/17 12:00 08/01/17 11:54 (Benadryl Inj) 50 mg ONCE PRN IV PUSH 08/02/17 08:15 08/02/17 23:59 Family History Denies any medical issues Possibly some high blood pressure Social History Denies any tobacco states he quit 3-4 years Positive alcohol use Physical Exam Vital Signs Vital Signs Date Time Temp Pulse Resp B/P (MAP) Pulse Ox O2 Delivery O2 Flow Rate FiO2 08/02/17 07:33 98 Nasal Cannula 2.00 08/02/17 04:00 76 08/02/17 04:00 Nasal Cannula 2.00 08/02/17 03:48 97.6 82 19 142/86 (104) 96 08/02/17 00:00 Nasal Cannula 2.00 08/02/17 00:00 74 08/01/17 23:36 97.6 76 13 135/86 (102) 96 08/01/17 21:20 96 Nasal Cannula 2.00 08/01/17 20:00 96 08/01/17 20:00 Nasal Cannula 2.00 08/01/17 19:10 97.6 100 24 164/81 (108) 95 08/01/17 16:00 100 21 163/89 (113) 94 08/01/17 16:00 Nasal Cannula 2.00 08/01/17 15:16 88 21 164/94 (117) 94 08/01/17 12:00 Nasal Cannula 2.00 08/01/17 12:00 94 39 148/88 (108) 94 08/01/17 12:00 94 22 148/88 (108) 94 08/01/17 11:00 84 13 94 08/01/17 11:00 84 13 94 08/01/17 10:00 90 21 155/92 (113) 96 08/01/17 10:00 90 21 96 08/01/17 09:58 96 Nasal Cannula 2.00 08/01/17 09:10 98.5 86 27 159/99 (119) 95 Physical Exam GENERAL: Well-developed well-nourished. In no acute distress. NECK: No carotid bruits. No JVD. CARDIOVASCULAR: Regular rate and rhythm. No murmur appreciated. RESPIRATORY: No accessory muscle use. Clear to auscultation. Poor air movement but no wheezing. MUSCULOSKELETAL: No clubbing or cyanosis. No edema. NEUROLOGICAL: Awake and alert. Normal speech. Laboratory Laboratory Tests Test 08/01/17 08:58 08/01/17 17:40 08/02/17 04:35 Total Creatine Kinase 185 Troponin I 0.13 0.10 Fibrinogen 135 D-Dimer Quantitative (PE/DVT) LESS THAN 0.19 White Blood Count 16.5 Red Blood Count 4.64 Hemoglobin 13.3 Hematocrit 40.7 Mean Corpuscular Volume 87.8 Mean Corpuscular Hemoglobin 28.6 Mean Corpuscular Hemoglobin Concent 32.5 Red Cell Distribution Width 14.8 Platelet Count 290 Mean Platelet Volume 7.7 Neutrophils (%) (Auto) 94.4 Lymphocytes (%) (Auto) 2.2 Monocytes (%) (Auto) 3.0 Eosinophils (%) (Auto) 0.0 Basophils (%) (Auto) 0.4 Neutrophils # (Auto) 15.5 Lymphocytes # (Auto) 0.4 Monocytes # (Auto) 0.5 Eosinophils # (Auto) 0.0 Basophils # (Auto) 0.1 CBC Comment DIFF FINAL Differential Comment Blood Urea Nitrogen 34 Creatinine 0.90 Random Glucose 144 Total Protein 5.1 Albumin 2.4 Calcium Level 8.2 Phosphorus Level 4.1 Magnesium Level 2.5 Alkaline Phosphatase 41 Aspartate Amino Transf (AST/SGOT) 17 Alanine Aminotransferase (ALT/SGPT) 76 Total Bilirubin 0.5 Sodium Level 139 Potassium Level 5.0 Chloride Level 99 Carbon Dioxide Level 35.5 Anion Gap 5 Estimat Glomerular Filtration Rate 86 Thyroid Stimulating Hormone 3rd Gen 0.101 Result Diagram: 08/02/17 0435 08/02/17 0435 Imaging Last Impressions Lower Extremity Ultrasound 08/01/17 0000 Signed Impressions: Service Date/Time: July 15:33 - CONCLUSION: No evidence of DVT. Pete Laureano MD Chest X-Ray 07/31/172122 Signed Impressions: Service Date/Time: Monday, July 31, 2017 21:43 - CONCLUSION: The lungs are clear. Guillermo Brown MD Lung Scan-VQ Nuclear Medicine 07/31/17 0000 Signed Impressions: Service Date/Time: Monday, July 31, 2017 23:33 - CONCLUSION: There is a matched defect in a nonsegmental distribution in the right midlung zone and there is a ventilation/perfusion mismatch in the superior segment of the left lower lobe. Based on PIOPED II criteria, this is consistent with intermediate probability for PE. Vazquez Kelly MD Assessment and Plan Assessment and Plan 62-year-old male with a past medical history of COPD who presented with shortness of breath Troponin elevation: Nonspecific EKG changes. Possible NSTEMI. Wheezing has improved, we'll check Lexiscan today. Possible pulmonary embolism: VQ scan with intermediate probability for PE. Patient on full dose Lovenox injections. Patient given premedication and planning for CTA today. COPD exacerbation: Seems to be improving. Management per primary team. Discussed Condition With Patient and RN at bedside, Kyle Díaz Aug 02, 2017 08:37
--- NOTE | 2017-08-02 08:44 | MB ---
cc: Idalia Freeman MD DATE OF CONSULT: 07/25/2017 REASON FOR CONSULTATION: COPD. HISTORY OF PRESENT ILLNESS: This is a 62-year-old man who has had a history of for COPD and chronic bronchitis, was seen in the emergency room for persistent cough, wheezing and chest congestion. The patient has previously been on bronchodilators and has been on prednisone, but failed to improve and, thus, came to the hospital, where he had a chest x-ray and then was admitted. The patient was started on IV steroids, including Solu-Medrol 40 milligrams intravenous every 6 hours and also started on Levaquin orally. He denied chest pain. No hemoptysis. He does bring up some whitish-yellow mucous and has wheezing. PAST MEDICAL HISTORY: Has included history for recurrent exacerbation of bronchitis and history of COPD, history of anxiety disorder. PAST SURGICAL HISTORY: Includes tonsillectomy, left eye surgery. ALLERGIES: Codeine, iodine and potassium iodide. MEDICATIONS: List included prednisone 200 milligrams at bedtime and ProAir inhaler 2 puffs as needed. FAMILY HISTORY: Noncontributory. HABITS: The patient smoked half to 1 pack per day for over 30 years and then quit. Alcohol use, minimal. REVIEW OF SYSTEMS: The patient has had some weight loss. No headaches or blackouts. No urinary symptoms. He has chest congestion, cough and postnasal drip and has had no leg or calf muscle pain. He has some joint pain to his extremities. PHYSICAL EXAMINATION: GENERAL: Thinly built elderly white male in no acute distress. Mild pallor. No icterus. Peripheral edema. VITAL SIGNS: Blood pressure 140/90, pulse 82, respirations 20, temperature 98.2. HEENT: Head normocephalic. Pupils reactive. Tongue moist. Nasal mucosa is edematous. Throat is injected. NECK: Supple, no bruits or thyroid enlargement or lymphadenopathy. CHEST: Distant breath sounds with expiratory wheezes throughout both lungs holley, prolonged expiration. CARDIOVASCULAR: The heart sounds are irregular. S1, S2, with no murmur. No S3. ABDOMEN: Soft, protuberant, without masses. No organomegaly. EXTREMITIES: No edema. Mild varicosities. No calf tenderness. Reflexes are 1+, with no gross motor deficits. NEUROLOGIC: Cranial nerves grossly intact. SKIN: No lesions noted. IMPRESSION: 1. Chronic obstructive pulmonary disease with acute exacerbation. 2. Reactive airways disease. 3. History of anxiety. PLAN: The patient will be maintained on O2 at 2 liters nasal cannula. Continue with Solu-Medrol 40 milligrams every 8 hours. He will have a pulmonary function study done at the bedside. He will continue with present medications. CT scan of the chest to be done without contrast to evaluate him for any lung nodules. We will continue using Symbicort 160/4.5 micrograms 2 puffs twice a day and DuoNeb solution nebulized four times a day. Thank you, Dr. Bahena, for this consultation. VMD DERIC Robbins/MAYA , 11:48 PM , 12:43 AM
[2017-08-02] MEDS ORDERED: IOHEXOL 350 MG/ML 10 ML VIAL (for RAD DIAG) IVCONTRAST ONE (09:08)
--- NOTE | 2017-08-02 09:30 | RADRPT ---
EXAM DATE/TIME: 08/02/2017 08:58 [facility] COMPARISON: No previous studies available for comparison. INDICATIONS : Short of breath. IV CONTRAST: 75 cc Omnipaque 350 (iohexol) IV RADIATION DOSE: 16.09 CTDIvol (mGy) MEDICAL HISTORY : Chronic obstructive pulmonary disease. SURGICAL HISTORY : None. ENCOUNTER: Initial ACUITY: 1 week PAIN SCALE: 0/10 LOCATION: Bilateral chest TECHNIQUE: Volumetric scanning of the chest was performed using a pulmonary embolism protocol MIP images were re constructed. Using automated exposure control and adjustment of the mA and/or kV according to patien t size, radiation dose was kept as low as reasonably achievable to obtain optimal diagnostic quality images. DICOM format image data is available electronically for review and comparison. Follow-up recommendations for detected pulmonary nodules are based at a minimum on nodule size and pa tient risk factors according to Fleischner Society Guidelines. FINDINGS: Mild interstitial prominence is evident. Cardiac size is appropriate. There is no alveolar consolidation. There is no evidence for central pulmonary emboli. Portion of the liver and spleen identified are free of focal defects. CONCLUSION: Negative central pulmonary emboli. Patient received Omnipaque 350 without reaction. Dioni Stover MD FACR on August 02, 2017 at 9:26 Board Certified Radiologist. This report was verified electronically.
[2017-08-02 12:10] LABS: FREE T4 0.66 NG/DL (0.76-1.46)
[2017-08-02] MEDS: ENOXAPARIN SODIUM 80 MG/0.8 ML SYRINGE SQ SCH (12:52)
[2017-08-02] MEDS: LEVOFLOXACIN 750 MG TAB PO SCH (12:52)
[2017-08-02 16:39] LABS: HEMOGLOBIN A1C 6.1 % (4.3-6.0)
--- NOTE | 2017-08-02 17:12 | HHI.PR ---
Subjective Remarks Respiratory status is improving. CTA of the chest is negative for PE today. Lovenox is discontinued and transitioned to prophylactic. Plan for stress test tomorrow. Patient has no new complaints. Objective Vital Signs Date Time Temp Pulse Resp B/P (MAP) Pulse Ox O2 Delivery O2 Flow Rate FiO2 08/02/17 13:58 97.9 96 14 150/83 (105) 94 08/02/17 12:00 94 Nasal Cannula 2.00 08/02/17 12:00 80 12 94 08/02/17 12:00 80 08/02/17 08:00 Nasal Cannula 2.00 08/02/17 08:00 76 08/02/17 08:00 97.7 80 27 140/85 (103) 97 08/02/17 07:33 98 Nasal Cannula 2.00 08/02/17 04:00 76 08/02/17 04:00 Nasal Cannula 2.00 08/02/17 03:48 97.6 82 19 142/86 (104) 96 08/02/17 00:00 Nasal Cannula 2.00 08/02/17 00:00 74 08/01/17 23:36 97.6 76 13 135/86 (102) 96 08/01/17 21:20 96 Nasal Cannula 2.00 08/01/17 20:00 96 08/01/17 20:00 Nasal Cannula 2.00 08/01/17 19:10 97.6 100 24 164/81 (108) 95 I/O 08/01/17 08/01/17 08/01/17 08/02/17 08/02/17 08/02/17 07:00 15:00 23:00 07:00 15:00 23:00 Intake Total 550 ml 420 ml 1200 ml Output Total 800 ml 600 ml 701 ml 900 ml Balance -250 ml -600 ml -281 ml 300 ml Intake Oral 0 ml 420 ml IV Total 550 ml 1200 ml Output Urine Total 800 ml 600 ml 700 ml 900 ml Stool Total 1 ml # Voids 3 1 # Bowel Movements 0 Result Diagram: 08/02/1743408/02/17434 Objective Remarks GENERAL: NAD, A&Ox3 HEAD: Normocephalic. NECK: Supple, trachea midline. No lymphadenopathy. EYES: No scleral icterus. No injection or drainage. CARDIOVASCULAR: Regular rate and rhythm without murmurs, gallops, or rubs. RESPIRATORY: Breath sounds equal bilaterally. No accessory muscle use. GASTROINTESTINAL: Abdomen soft, non-tender, nondistended. MUSCULOSKELETAL: No cyanosis, or edema. SKIN: Warm and dry. NEURO: No focal neurological deficitis. A/P Problem List: (1) Hypoxemia ICD Code: R09.02 - Hypoxemia Status: Acute (2) Dyspnea ICD Code: R06.00 - Dyspnea, unspecified Status: Acute (3) Elevated troponin ICD Code: R74.8 - Abnormal levels of other serum enzymes Status: Acute (4) COPD exacerbation ICD Code: J44.1 - Chronic obstructive pulmonary disease with (acute) exacerbation Status: Acute Assessment and Plan 62 year-old male admitted secondary to COPD exacerbation with elevated troponins COPD exacerbation Improving Continue oxygen supplementation as needed Continue steroids Continue Mucinex Continue duo nebs Pulmonology following CTA of chest is negative Elevated troponins Cardiology following Stress test planned for tomorrow If stress test is positive may consider cardiac catheterization Currently no active chest pain DVT prophylaxis Lovenox Problem Qualifiers (1) Dyspnea: Qualified Codes: R06.03 - Acute respiratory distress Dominic Calvo MD Aug 02, 2017 17:12
--- NOTE | 2017-08-02 18:17 | PD.ONC.PN ---
Subjective Subjective Remarks Patient seen and examined, vital signs, labs, medications and CT scan to gram of the thorax from 08/02/2017 were reviewed. Subjectively; patient reports breathing is improved today. He feels his chest "loosening up ". Objective Data Date Time Temp Pulse Resp B/P (MAP) Pulse Ox O2 Delivery O2 Flow Rate FiO2 08/02/17 16:00 94 Nasal Cannula 2.00 08/02/17 16:00 104 08/02/17 13:58 97.9 96 14 150/83 (105) 94 08/02/17 12:00 94 Nasal Cannula 2.00 08/02/17 12:00 80 12 94 08/02/17 12:00 80 08/02/17 08:00 Nasal Cannula 2.00 08/02/17 08:00 76 08/02/17 08:00 97.7 80 27 140/85 (103) 97 08/02/17 07:33 98 Nasal Cannula 2.00 08/02/17 04:00 76 08/02/17 04:00 Nasal Cannula 2.00 08/02/17 03:48 97.6 82 19 142/86 (104) 96 08/02/17 00:00 Nasal Cannula 2.00 08/02/17 00:00 74 08/01/17 23:36 97.6 76 13 135/86 (102) 96 08/01/17 21:20 96 Nasal Cannula 2.00 08/01/17 20:00 96 08/01/17 20:00 Nasal Cannula 2.00 08/01/17 19:10 97.6 100 24 164/81 (108) 95 08/02/17 08/02/17 08/02/17 07:00 15:00 23:00 Intake Total 1200 ml Output Total 900 ml Balance 300 ml Result Diagram: 08/02/17 0435 08/02/17 0435 Laboratory Results Laboratory Tests Test 08/02/17 04:35 White Blood Count 16.5 TH/MM3 Red Blood Count 4.64 MIL/MM3 Hemoglobin 13.3 GM/DL Hematocrit 40.7 % Mean Corpuscular Volume 87.8 FL Mean Corpuscular Hemoglobin 28.6 PG Mean Corpuscular Hemoglobin Concent 32.5 % Red Cell Distribution Width 14.8 % Platelet Count 290 TH/MM3 Mean Platelet Volume 7.7 FL Neutrophils (%) (Auto) 94.4 % Lymphocytes (%) (Auto) 2.2 % Monocytes (%) (Auto) 3.0 % Eosinophils (%) (Auto) 0.0 % Basophils (%) (Auto) 0.4 % Neutrophils # (Auto) 15.5 TH/MM3 Lymphocytes # (Auto) 0.4 TH/MM3 Monocytes # (Auto) 0.5 TH/MM3 Eosinophils # (Auto) 0.0 TH/MM3 Basophils # (Auto) 0.1 TH/MM3 CBC Comment DIFF FINAL Differential Comment Blood Urea Nitrogen 34 MG/DL Creatinine 0.90 MG/DL Random Glucose 144 MG/DL Total Protein 5.1 GM/DL Albumin 2.4 GM/DL Calcium Level 8.2 MG/DL Phosphorus Level 4.1 MG/DL Magnesium Level 2.5 MG/DL Alkaline Phosphatase 41 U/L Aspartate Amino Transf (AST/SGOT) 17 U/L Alanine Aminotransferase (ALT/SGPT) 76 U/L Total Bilirubin 0.5 MG/DL Sodium Level 139 MEQ/L Potassium Level 5.0 MEQ/L Chloride Level 99 MEQ/L Carbon Dioxide Level 35.5 MEQ/L Anion Gap 5 MEQ/L Estimat Glomerular Filtration Rate 86 ML/MIN Hemoglobin A1c 6.1 % Troponin I 0.10 NG/ML Free Thyroxine 0.66 NG/DL Thyroid Stimulating Hormone 3rd Gen 0.101 uIU/ML Imaging Studies Last [address] Angiography 08/02/17 0000 Signed Impressions: Service Date/Time: Wednesday, August 02, 2017 08:58 - CONCLUSION: Negative central pulmonary emboli. Patient received Omnipaque 350 without reaction. Dioni Stover MD FACR Administered Medications Medications (Trade) Dose Ordered Sig/Yanelis Route PRN Reason Start Time Stop Time Status Last Admin Dose Admin Sodium Chloride 1,000 ml @ 100 mls/hr Q10H IV 07/31/17 22:37 08/02/17 04:12 Methylprednisolone Sodium Succinate (SoluMEDROL INJ) 40 mg Q6HR IV PUSH 08/01/17 00:00 08/02/17 17:01 Pantoprazole Sodium (Protonix) 40 mg DAILY PO 08/01/17 09:00 08/02/17 08:31 Guaifenesin (Mucinex Er) 600 mg BID PO 08/01/17 12:00 08/02/17 08:31 Ondansetron HCl (Zofran Inj) 4 mg Q6H PRN IVP NAUSEA OR VOMITING 08/01/17 11:15 08/02/17 08:32 Oxycodone/ Acetaminophen (Percocet 5-325 Mg) 1 tab Q6H PRN PO PAIN SCALE 3 TO 5 08/01/17 11:15 08/01/17 20:11 Senna/Docusate Sodium (Sandra-Colace) 1 tab BID PO 08/01/17 21:00 08/02/17 08:32 Sodium Chloride (NS Flush) 2 ml BID IV FLUSH 08/01/17 21:00 08/01/17 20:14 Albuterol/ Ipratropium (Duoneb Neb) 1 ampule Q6HR NEB INH 08/01/17 16:00 08/02/17 14:56 Budesonide/ Formoterol Fumarate (Symbicort 160-4.5 Mcg Inh) 2 puff Q12HR INH 08/01/17 12:00 08/02/17 08:30 Levofloxacin (Levaquin) 750 mg Q24H PO 08/01/17 12:00 08/02/17 12:52 Diphenhydramine HCl (Benadryl Inj) 50 mg ONCE PRN IV PUSH Before CT 08/02/17 08:15 08/02/17 23:59 08/02/17 08:34 Objective Remarks GENERAL: He is alert and oriented x 3, in no acute distress. Cushingoid appearance. HEENT: Atraumatic, normocephalic. Pupils equal, round, reactive to light. Extraocular muscles are intact. No scleral icterus. Oropharynx - dry mucosa, no lesion, no thrush, no mucositis. NECK: No thyromegaly. No palpable mass. LYMPHATICS: No palpable cervical, clavicular or axillary lymph nodes. CARDIOVASCULAR: Borderline tachycardia S1 and S2 with no murmur. LUNGS: He has distant sounding breath sounds with slow expiratory phase. No wheezing or rhonchi noted ABDOMEN: Soft, nontender. I could not palpate liver or spleen. EXTREMITY EXAM: No cyanosis, no clubbing or edema. BACK: No paravertebral tenderness. SKIN: No rash or petechiae. NEUROLOGIC EXAM: Nonfocal. Assessment/Plan Assessment 8-year-old male with history of COPD, presents with COPD exacerbation. Initial VQ scan revealed findings concerning for pulmonary emboli. CT angiogram performed subsequently revealed no evidence of pulmonary emboli. He was briefly initiated on anticoagulation after initial VQ scan results the anticoagulation has now been discontinued. Plan Discontinue anticoagulation given negative CT angiogram of the thorax. VQ scan can be misleading one performed during COPD exacerbations. No need for anticoagulation. Oncology/hematology service will sign off. John Christianson MD Aug 02, 2017 18:17
[2017-08-02] MEDS: oxyCODONE/ACETAMINOPHEN 10 MG/325 MG TAB PO PRN (20:11)
--- NOTE | 2017-08-02 20:35 | HHI.PR ---
Subjective Remarks Feels better. On O2 2 L. No cough but has wheezing Objective Vital Signs Date Time Temp Pulse Resp B/P (MAP) Pulse Ox O2 Delivery O2 Flow Rate FiO2 08/02/17 18:00 98.1 104 28 140/88 (105) 93 08/02/17 16:00 94 Nasal Cannula 2.00 08/02/17 16:00 104 25 94 08/02/17 16:00 104 08/02/17 13:58 97.9 96 14 150/83 (105) 94 08/02/17 12:00 94 Nasal Cannula 2.00 08/02/17 12:00 80 12 94 08/02/17 12:00 80 08/02/17 08:00 Nasal Cannula 2.00 08/02/17 08:00 76 08/02/17 08:00 97.7 80 27 140/85 (103) 97 08/02/17 07:33 98 Nasal Cannula 2.00 08/02/17 04:00 76 08/02/17 04:00 Nasal Cannula 2.00 08/02/17 03:48 97.6 82 19 142/86 (104) 96 08/02/17 00:00 Nasal Cannula 2.00 08/02/17 00:00 74 08/01/17 23:36 97.6 76 13 135/86 (102) 96 08/01/17 21:20 96 Nasal Cannula 2.00 I/O 08/01/17 08/01/17 08/01/17 08/02/17 08/02/17 08/02/17 07:00 15:00 23:00 07:00 15:00 23:00 Intake Total 550 ml 420 ml 1200 ml 750 ml Output Total 800 ml 600 ml 701 ml 900 ml 1450 ml Balance -250 ml -600 ml -281 ml 300 ml -700 ml Intake Oral 0 ml 420 ml 750 ml IV Total 550 ml 1200 ml Output Urine Total 800 ml 600 ml 700 ml 900 ml 1450 ml Stool Total 1 ml 0 ml # Voids 3 1 # Bowel Movements 0 Result Diagram: 08/02/1743408/02/17434 Objective Remarks GENERAL: Thinly built elderly white male in no acute distress. Mild pallor. No icterus. Peripheral edema. HEENT: Head normocephalic. Pupils reactive. Tongue moist. Nasal mucosa is edematous. Throat is clear NECK: Supple, no bruits or thyroid enlargement or lymphadenopathy. CHEST: Distant breath sounds with expiratory wheezes over both lungs holley, prolonged expiration. CARDIOVASCULAR: The heart sounds are irregular. S1, S2, with no murmur. No S3. ABDOMEN: Soft, protuberant, without masses. No organomegaly. EXTREMITIES: No edema. Mild varicosities. No calf tenderness. Reflexes are 1+, with no gross motor deficits. NEUROLOGIC: Cranial nerves grossly intact. SKIN: No lesions noted. Assessment and Plan Assessment and Plan IMPRESSION: 1. Chronic obstructive pulmonary disease with acute exacerbation. 2. Reactive airways disease. 3. History of anxiety. Plan : 1. Continue antibiotics. 2. Wean O2 to RA 3. Nebs qid with duoneb 4. Taper off solumderol to Predniosne 20 mg bid 5. PFT and BMP 6. Transfer to Idalia Kinsey MD Aug 02, 2017 20:35
[2017-08-03] VITALS (11 sets, daily range): BP systolic 140–180; BP diastolic 82–102; PULSE 77–101; RESP 18–22; TEMP 96.2–97.7; O2SAT 91–95
[2017-08-03] MEDS: RESP: ALBUTEROL 2.5 MG/IPRATROPIUM 0.5 MG NEB (SCH) INH ×4 (03:59→22:19)
[2017-08-03] MEDS: SODIUM CHLOR 0.9% 1000 ML INJ 1,000 ML IV SCH (06:09)
[2017-08-03 08:24] LABS: AUTOMATED NEUTROPHIL # 16.2 TH/MM3 (1.8-7.7); BASOPHIL # 0.2 TH/MM3 (0-0.2); BASOPHIL % 0.9 % (0.0-2.0); CHLORIDE 97 MEQ/L (98-107); EOSINOPHIL % 0.1 % (0.0-4.0); HEMATOCRIT 41.6 % (39.0-51.0); HEMOGLOBIN 13.5 GM/DL (13.0-17.0); LYMPH % 1.8 % (9.0-44.0); LYMPHOCYTE # 0.3 TH/MM3 (1.0-4.8); MEAN CELL VOLUME 87.7 FL (80.0-100.0); MEAN CORPUSCULAR HEMOGLOBIN 28.4 PG (27.0-34.0); MEAN CORPUSCULAR HGB CONC 32.4 % (32.0-36.0); MONO % 3.6 % (0.0-8.0); MONOCYTE # 0.6 TH/MM3 (0-0.9); NEUT % 93.6 % (16.0-70.0); PLATELET COUNT 289 TH/MM3 (150-450); RED BLOOD COUNT 4.75 MIL/MM3 (4.50-5.90); RED CELL DISTRIBUTION WIDTH 14.3 % (11.6-17.2); SODIUM (NA) 138 MEQ/L (136-145); WHITE BLOOD COUNT 17.3 TH/MM3 (4.0-11.0)
[2017-08-03 08:28] LABS: ALBUMIN 2.5 GM/DL (3.4-5.0); BICARBONATE 36.5 MEQ/L (21.0-32.0); BLOOD UREA NITROGEN 33 MG/DL (7-18); CALCIUM 8.4 MG/DL (8.5-10.1); GLUCOSE,RANDOM 131 MG/DL (74-106)
[2017-08-03 08:31] LABS: ALT (GPT) 71 U/L (12-78); AST (GOT) 13 U/L (15-37); CREATININE 0.66 MG/DL (0.60-1.30); GLOMERULAR FILTRATION RATE 123 ML/MIN (>89)
[2017-08-03 08:33] LABS: TOTAL BILIRUBIN ADULT 0.6 MG/DL (0.2-1.0); TOTAL PROTEIN 5.2 GM/DL (6.4-8.2)
[2017-08-03 08:34] LABS: ALKALINE PHOSPHATASE 42 U/L (45-117)
[2017-08-03] MEDS: BUDESONIDE-FORMOTEROL 160/4.5 MCG INHALER INH SCH ×2 (08:36→20:02)
[2017-08-03] MEDS: PANTOPRAZOLE SOD 40 MG DELAYED RELEASE TAB PO SCH (08:37)
[2017-08-03] MEDS: ENOXAPARIN SODIUM 40 MG/0.4 ML SYRINGE SQ SCH (08:37)
[2017-08-03] MEDS: methylPREDNISolone SOD SUCC 40 MG/1 ML VIAL IV PUSH SCH ×2 (08:38→17:18)
[2017-08-03] MEDS: guaiFENesin E.R. 600 MG TAB PO SCH ×2 (08:38→20:04)
[2017-08-03] MEDS: DOCUSATE SODIUM 50 MG/SENNA 8.6 MG TAB PO SCH ×2 (08:38→20:04)
[2017-08-03] MEDS: SODIUM CHLORIDE 0.9% FLUSH 10 ML FLUSH IV FLUSH SCH ×2 (08:38→20:04)
[2017-08-03] MEDS ORDERED: REGADENOSON INJ 0.4 MG/5 ML SYR IV ONE (09:42)
[2017-08-03] MEDS: oxyCODONE/ACETAMINOPHEN 10 MG/325 MG TAB PO PRN (10:56)
--- NOTE | 2017-08-03 10:57 | RADRPT ---
EXAM DATE/TIME: 08/03/2017 09:26 [place] COMPARISON: No previous studies available for comparison. INDICATIONS : Upper abdominal pain. Dyspnea. Angina. DOSE: 25.9 mCi Tc99m Myoview at stress. 8.1 mCi Tc99m Myoview at rest. 0.4 mg Lexiscan STRESS SYMPTOMS: Short of breath. EJECTION FRACTION: 29% MEDICAL HISTORY : Chronic obstructive pulmonary disease. SURGICAL HISTORY : Orthopedic. ENCOUNTER: Initial ACUITY: 1 day PAIN SCALE: 4/10 LOCATION: chest TECHNIQUE: The patient underwent pharmacologic stress with infusion of prescribed dose. Continuous ECG tracing was monitored during stress. Gated SPECT imaging was performed after stress and conventional SPECT i maging was performed at rest. The examination was performed on a SPECT/CT scanner, both attenuation and non-corrected datasets were reviewed. FINDINGS: DISTRIBUTION: The maximum perfused segment at stress is in the anterior wall. PERFUSION STUDY: There are no stress-induced reversible perfusion abnormalities. GATED STUDY: Left ventricular chamber is enlarged. Ejection fraction is 29%. There is moderate to severe global hy pokinesia. CONCLUSION: 1. Left ventricular dysfunction with 29% ejection fraction and moderate to severe global hypokinesia. 2. No evidence of stress-induced reversible perfusion abnormality. RISK CATEGORY: High (>3% Annual Mortality Rate) Jacob Ruth MD on August 03, 2017 at 10:52 Board Certified Radiologist. This report was verified electronically.
[2017-08-03] MEDS: oxyCODONE/ACETAMINOPHEN 5 MG/325 MG TAB PO PRN ×2 (11:04→22:32)
[2017-08-03] MEDS: LEVOFLOXACIN 750 MG TAB PO SCH (13:11)
--- NOTE | 2017-08-03 16:17 | HHI.PR ---
Subjective Remarks Stress test today shows ejection fraction of approximately 29%. No reversible perfusion defects on stress test. Patient reports his breathing continues to improve. Objective Vital Signs Date Time Temp Pulse Resp B/P (MAP) Pulse Ox O2 Delivery O2 Flow Rate FiO2 08/03/17 12:00 97.7 83 20 160/86 (110) 94 08/03/17 11:25 91 08/03/17 10:06 18 08/03/17 09:56 Nasal Cannula 2.00 08/03/17 07:44 96.9 83 20 168/99 (122) 95 08/03/17 04:00 96.4 77 20 159/90 (113) 93 08/03/17 01:41 96.2 86 20 167/89 (115) 93 08/03/17 00:00 Nasal Cannula 2.00 08/03/17 00:00 86 08/02/17 23:40 98.6 90 25 136/77 (96) 94 08/02/17 22:00 Nasal Cannula 2.00 08/02/17 21:10 95 Nasal Cannula 2.00 08/02/17 20:00 92 08/02/17 20:00 Nasal Cannula 2.00 08/02/17 18:00 98.1 104 28 140/88 (105) 93 I/O 08/02/17 08/02/17 08/02/17 08/03/17 08/03/17 08/03/17 07:00 15:00 23:00 07:00 15:00 23:00 Intake Total 1200 ml 750 ml 0 ml 480 ml Output Total 900 ml 1450 ml 1200 ml 1200 ml Balance 300 ml -700 ml -1200 ml -720 ml Intake Oral 750 ml 0 ml 480 ml IV Total 1200 ml Output Urine Total 900 ml 1450 ml 1200 ml 1200 ml Stool Total 0 ml # Voids 2 Result Diagram: 08/03/17 0745 08/03/17 0745 Objective Remarks GENERAL: NAD, A&Ox3 HEAD: Normocephalic. NECK: Supple, trachea midline. No lymphadenopathy. EYES: No scleral icterus. No injection or drainage. CARDIOVASCULAR: Regular rate and rhythm without murmurs, gallops, or rubs. RESPIRATORY: Breath sounds equal bilaterally. No accessory muscle use. GASTROINTESTINAL: Abdomen soft, non-tender, nondistended. MUSCULOSKELETAL: No cyanosis, or edema. SKIN: Warm and dry. NEURO: No focal neurological deficitis. A/P Problem List: (1) Hypoxemia ICD Code: R09.02 - Hypoxemia Status: Acute (2) Dyspnea ICD Code: R06.00 - Dyspnea, unspecified Status: Acute (3) Elevated troponin ICD Code: R74.8 - Abnormal levels of other serum enzymes Status: Acute (4) COPD exacerbation ICD Code: J44.1 - Chronic obstructive pulmonary disease with (acute) exacerbation Status: Acute Assessment and Plan 62 year-old male admitted secondary to COPD exacerbation with elevated troponins Stress test is positive for decreased ejection fraction without evidence of reversible perfusion defect. Respiratory status continues to improve. Not yet fully tolerant of oxygen weaning. Plan to attempt to wean from oxygen tomorrow as tolerated. COPD exacerbation Improving Continue oxygen supplementation as needed Continue steroids Continue Mucinex Continue duo nebs Pulmonology following CTA of chest is negative Elevated troponins Cardiology following Stress test planned for tomorrow If stress test is positive may consider cardiac catheterization Currently no active chest pain DVT prophylaxis Lovenox Problem Qualifiers (1) Dyspnea: Qualified Codes: R06.03 - Acute respiratory distress Dominic Calvo MD Aug 03, 2017 16:17
--- NOTE | 2017-08-03 19:52 | PD.CARD.PN ---
Subjective Subjective Remarks Feels better, less dyspnea Objective Medications Current Medications Medications (Trade) Dose Ordered Sig/Yanelis Route Start Time Stop Time Status Last Admin Sodium Chloride 1,000 ml @ 42 mls/hr [id number] IV 07/31/17 22:37 08/03/17 06:09 (Duoneb Neb) 1 ampule Q2HR NEB PRN NEB 07/31/17 22:45 (Protonix) 40 mg DAILY PO 08/01/17 09:00 08/03/17 08:37 (Mucinex Er) 600 mg BID PO 08/01/17 12:00 08/03/17 08:38 (Tylenol) 650 mg Q4H PRN PO 08/01/17 11:15 (Zofran Inj) 4 mg Q6H PRN IVP 08/01/17 11:15 08/02/17 08:32 (Reglan Inj) 5 mg Q6H PRN IV PUSH 08/01/17 11:15 (Tylenol) 650 mg Q6H PRN PO 08/01/17 11:15 (Percocet 5-325 Mg) 1 tab Q6H PRN PO 08/01/17 11:15 08/03/17 11:04 (Percocet 10-325 Mg) 1 tab Q6H PRN PO 08/01/17 11:15 08/02/17 20:11 (Morphine Inj) 2 mg Q3H PRN IV PUSH 08/01/17 11:15 (Morphine Inj) 4 mg Q3H PRN IV PUSH 08/01/17 11:15 (Narcan Inj) 0.4 mg UNSCH PRN IV PUSH 08/01/17 11:15 (Sandra-Colace) 1 tab BID PO 08/01/17 21:00 08/03/17 08:38 (Milk Of Magnesia Liq) 30 ml Q12H PRN PO 08/01/17 11:15 (Senokot) 17.2 mg Q12H PRN PO 08/01/17 11:15 (Dulcolax Supp) 10 mg DAILY PRN RECTAL 08/01/17 11:15 (Lactulose Liq) 30 ml DAILY PRN PO 08/01/17 11:15 (NS Flush) 2 ml BID IV FLUSH 08/01/17 21:00 08/02/17 19:27 (NS Flush) 2 ml UNSCH PRN IV FLUSH 08/01/17 11:15 (Duoneb Neb) 1 ampule Q6HR NEB INH 08/01/17 16:00 08/03/17 16:32 (Symbicort 160-4.5 Mcg Inh) 2 puff Q12HR INH 08/01/17 12:00 08/03/17 08:36 (Levaquin) 750 mg Q24H PO 08/01/17 12:00 08/03/17 13:11 (Lovenox Inj) 40 mg Q24H SQ 08/03/17 09:00 (SoluMEDROL INJ) 40 mg Q8H IV PUSH 08/03/17 01:00 08/03/17 17:18 Vital Signs / I&O Vital Signs Date Time Temp Pulse Resp B/P (MAP) Pulse Ox O2 Delivery O2 Flow Rate FiO2 08/03/17 17:20 Nasal Cannula 2.00 08/03/17 16:00 97.0 94 20 140/82 (101) 94 08/03/17 12:00 97.7 83 20 160/86 (110) 94 08/03/17 11:25 91 08/03/17 10:06 18 08/03/17 09:56 Nasal Cannula 2.00 08/03/17 07:44 96.9 83 20 168/99 (122) 95 08/03/17 04:00 96.4 77 20 159/90 (113) 93 08/03/17 01:41 96.2 86 20 167/89 (115) 93 08/03/17 00:00 Nasal Cannula 2.00 08/03/17 00:00 86 08/02/17 23:40 98.6 90 25 136/77 (96) 94 08/02/17 22:00 Nasal Cannula 2.00 08/02/17 21:10 95 Nasal Cannula 2.00 08/02/17 20:00 92 08/02/17 20:00 Nasal Cannula 2.00 I/O 08/02/17 08/02/17 08/02/17 08/03/17 08/03/17 08/03/17 07:00 15:00 23:00 07:00 15:00 23:00 Intake Total 1200 ml 750 ml 0 ml 480 ml 504 ml Output Total 900 ml 1450 ml 1200 ml 1200 ml Balance 300 ml -700 ml -1200 ml -720 ml 504 ml Intake Oral 750 ml 0 ml 480 ml IV Total 1200 ml 504 ml Output Urine Total 900 ml 1450 ml 1200 ml 1200 ml Stool Total 0 ml # Voids 2 Physical Exam GENERAL: NAD, A&Ox3 HEAD: Normocephalic. NECK: Supple, trachea midline. No lymphadenopathy. EYES: No scleral icterus. No injection or drainage. CARDIOVASCULAR: Regular rate and rhythm without murmurs, gallops, or rubs. RESPIRATORY: Breath sounds equal bilaterally. No accessory muscle use. GASTROINTESTINAL: Abdomen soft, non-tender, nondistended. MUSCULOSKELETAL: No cyanosis, or edema. SKIN: Warm and dry. NEURO: No focal neurological deficits. Laboratory Laboratory Tests Test 08/03/17 07:45 White Blood Count 17.3 TH/MM3 Red Blood Count 4.75 MIL/MM3 Hemoglobin 13.5 GM/DL Hematocrit 41.6 % Mean Corpuscular Volume 87.7 FL Mean Corpuscular Hemoglobin 28.4 PG Mean Corpuscular Hemoglobin Concent 32.4 % Red Cell Distribution Width 14.3 % Platelet Count 289 TH/MM3 Mean Platelet Volume 8.0 FL Neutrophils (%) (Auto) 93.6 % Lymphocytes (%) (Auto) 1.8 % Monocytes (%) (Auto) 3.6 % Eosinophils (%) (Auto) 0.1 % Basophils (%) (Auto) 0.9 % Neutrophils # (Auto) 16.2 TH/MM3 Lymphocytes # (Auto) 0.3 TH/MM3 Monocytes # (Auto) 0.6 TH/MM3 Eosinophils # (Auto) 0.0 TH/MM3 Basophils # (Auto) 0.2 TH/MM3 CBC Comment DIFF FINAL Differential Comment Blood Urea Nitrogen 33 MG/DL Creatinine 0.66 MG/DL Random Glucose 131 MG/DL Total Protein 5.2 GM/DL Albumin 2.5 GM/DL Calcium Level 8.4 MG/DL Alkaline Phosphatase 42 U/L Aspartate Amino Transf (AST/SGOT) 13 U/L Alanine Aminotransferase (ALT/SGPT) 71 U/L Total Bilirubin 0.6 MG/DL Sodium Level 138 MEQ/L Potassium Level 4.7 MEQ/L Chloride Level 97 MEQ/L Carbon Dioxide Level 36.5 MEQ/L Anion Gap 5 MEQ/L Estimat Glomerular Filtration Rate 123 ML/MIN Imaging Last 24 hours Impressions Myocardial Perfusion Scan Nuc Med 08/03/17 0000 Signed Impressions: Service Date/Time: Thursday, August 03, 2017 09:26 - CONCLUSION: 1. Left ventricular dysfunction with 29%% ejection fraction and moderate to severe global hypokinesia. 2. No evidence of stress-induced reversible perfusion abnormality. RISK CATEGORY: High (>3%% Annual Mortality Rate) Jacob Ruth MD Assessment and Plan Problem List: (1) CHF (congestive heart failure) ICD Codes: I50.9 - Heart failure, unspecified (2) Elevated troponin ICD Codes: R74.8 - Abnormal levels of other serum enzymes Status: Acute (3) COPD exacerbation ICD Codes: J44.1 - Chronic obstructive pulmonary disease with (acute) exacerbation Status: Acute Assessment and Plan 62-year-old male with a past medical history of COPD who presented with shortness of breath Troponin elevation: Nonspecific EKG changes. Possible NSTEMI. 08/02/17 Lexiscan nuclear stress test showed no ischemia, LVEF 29% He may benefit for [facility] will order Echo, (no Echo since 2017) CTA chest showed no pulmonary embolism COPD exacerbation: Seems to be improving. Management per primary team. Dr. Lopez covers Dr. Hall 08/03 to 08/04. Wing Nora Lopez MD Aug 03, 2017 19:52
[2017-08-04] VITALS: PULSE 91
[2017-08-04] MEDS: methylPREDNISolone SOD SUCC 40 MG/1 ML VIAL IV PUSH SCH ×2 (01:06→09:02)
[2017-08-04 01:27] VITALS: BP 129/91; PULSE 84; RESP 18; TEMP 97; O2SAT 94
[2017-08-04] MEDS: RESP: ALBUTEROL 2.5 MG/IPRATROPIUM 0.5 MG NEB (SCH) INH ×3 (04:15→15:26)
[2017-08-04 04:19] VITALS: BP 142/95; PULSE 80; RESP 20; TEMP 97.7; O2SAT 96
[2017-08-04] MEDS: SODIUM CHLOR 0.9% 1000 ML INJ 1,000 ML IV SCH ×2 (05:23→09:07)
[2017-08-04 08:00] VITALS: BP 154/96; PULSE 81; RESP 20; TEMP 97; O2SAT 94
[2017-08-04] MEDS: BUDESONIDE-FORMOTEROL 160/4.5 MCG INHALER INH SCH (09:03)
[2017-08-04] MEDS: DOCUSATE SODIUM 50 MG/SENNA 8.6 MG TAB PO SCH (09:04)
[2017-08-04] MEDS: SODIUM CHLORIDE 0.9% FLUSH 10 ML FLUSH IV FLUSH SCH (09:04)
[2017-08-04] MEDS: guaiFENesin E.R. 600 MG TAB PO SCH (09:04)
[2017-08-04] MEDS: PANTOPRAZOLE SOD 40 MG DELAYED RELEASE TAB PO SCH (09:04)
[2017-08-04] MEDS: ENOXAPARIN SODIUM 40 MG/0.4 ML SYRINGE SQ SCH (09:06)
[2017-08-04 09:50] VITALS: O2SAT 96
--- NOTE | 2017-08-04 10:04 | PD.CARD.PN ---
Subjective Subjective Remarks Feels better, less dyspnea on Oxygen Objective Medications Current Medications Medications (Trade) Dose Ordered Sig/Yanelis Route Start Time Stop Time Status Last Admin Sodium Chloride 1,000 ml @ 42 mls/hr [id number] IV 07/31/17 22:37 08/03/17 06:09 (Duoneb Neb) 1 ampule Q2HR NEB PRN NEB 07/31/17 22:45 (Protonix) 40 mg DAILY PO 08/01/17 09:00 08/04/17 09:04 (Mucinex Er) 600 mg BID PO 08/01/17 12:00 08/04/17 09:04 (Tylenol) 650 mg Q4H PRN PO 08/01/17 11:15 (Zofran Inj) 4 mg Q6H PRN IVP 08/01/17 11:15 08/02/17 08:32 (Reglan Inj) 5 mg Q6H PRN IV PUSH 08/01/17 11:15 (Tylenol) 650 mg Q6H PRN PO 08/01/17 11:15 (Percocet 5-325 Mg) 1 tab Q6H PRN PO 08/01/17 11:15 08/03/17 22:32 (Percocet 10-325 Mg) 1 tab Q6H PRN PO 08/01/17 11:15 08/02/17 20:11 (Morphine Inj) 2 mg Q3H PRN IV PUSH 08/01/17 11:15 (Morphine Inj) 4 mg Q3H PRN IV PUSH 08/01/17 11:15 (Narcan Inj) 0.4 mg UNSCH PRN IV PUSH 08/01/17 11:15 (Sandra-Colace) 1 tab BID PO 08/01/17 21:00 08/03/17 20:04 (Milk Of Magnesia Liq) 30 ml Q12H PRN PO 08/01/17 11:15 (Senokot) 17.2 mg Q12H PRN PO 08/01/17 11:15 (Dulcolax Supp) 10 mg DAILY PRN RECTAL 08/01/17 11:15 (Lactulose Liq) 30 ml DAILY PRN PO 08/01/17 11:15 08/03/17 22:28 (NS Flush) 2 ml BID IV FLUSH 08/01/17 21:00 08/04/17 09:04 (NS Flush) 2 ml UNSCH PRN IV FLUSH 08/01/17 11:15 (Duoneb Neb) 1 ampule Q6HR NEB INH 08/01/17 16:00 08/04/17 09:47 (Symbicort 160-4.5 Mcg Inh) 2 puff Q12HR INH 08/01/17 12:00 08/04/17 09:03 (Levaquin) 750 mg Q24H PO 08/01/17 12:00 08/03/17 13:11 (Lovenox Inj) 40 mg Q24H SQ 08/03/17 09:00 (SoluMEDROL INJ) 40 mg Q8H IV PUSH 08/03/17 01:00 08/04/17 09:02 Vital Signs / I&O Vital Signs Date Time Temp Pulse Resp B/P (MAP) Pulse Ox O2 Delivery O2 Flow Rate FiO2 08/04/17 09:50 96 Nasal Cannula 2.00 08/04/17 08:00 Nasal Cannula 2.00 08/04/17 08:00 97.0 81 20 154/96 (115) 94 08/04/17 04:19 97.7 80 20 142/95 (111) 96 08/04/17 01:27 97.0 84 18 129/91 (104) 94 08/04/17 00:00 91 08/04/17 00:00 Nasal Cannula 2.00 08/03/17 22:20 94 Nasal Cannula 2.00 08/03/17 20:19 97.2 101 22 180/102 (128) 94 08/03/17 20:00 91 08/03/17 20:00 Nasal Cannula 2.00 08/03/17 17:20 Nasal Cannula 2.00 08/03/17 16:00 97.0 94 20 140/82 (101) 94 08/03/17 12:00 97.7 83 20 160/86 (110) 94 08/03/17 11:25 91 08/03/17 10:06 18 I/O 08/03/17 08/03/17 08/03/17 08/04/17 08/04/17 08/04/17 07:00 15:00 23:00 07:00 15:00 23:00 Intake Total 0 ml 480 ml 504 ml Output Total 1200 ml 1200 ml 1350 ml Balance -1200 ml -720 ml 504 ml -1350 ml Intake Oral 0 ml 480 ml IV Total 504 ml Output Urine Total 1200 ml 1200 ml 1350 ml # Voids 2 1 Physical Exam GENERAL: NAD, A&Ox3 HEAD: Normocephalic. NECK: Supple, trachea midline. No lymphadenopathy. EYES: No scleral icterus. No injection or drainage. CARDIOVASCULAR: Regular rate and rhythm without murmurs, gallops, or rubs. RESPIRATORY: Breath sounds equal bilaterally. No accessory muscle use. GASTROINTESTINAL: Abdomen soft, non-tender, nondistended. MUSCULOSKELETAL: No cyanosis, or edema. SKIN: Warm and dry. NEURO: No focal neurological deficits. Assessment and Plan Problem List: (1) CHF (congestive heart failure) ICD Codes: I50.9 - Heart failure, unspecified (2) Elevated troponin ICD Codes: R74.8 - Abnormal levels of other serum enzymes Status: Acute (3) COPD exacerbation ICD Codes: J44.1 - Chronic obstructive pulmonary disease with (acute) exacerbation Status: Acute Assessment and Plan 62-year-old male with a past medical history of COPD who presented with shortness of breath Troponin elevation: Nonspecific EKG changes. Possible NSTEMI. 08/02/17 Lexiscan nuclear stress test showed no ischemia, LVEF 29% He may benefit for C He prefers to be done in [place]. Pending Echo, (no Echo since 2016) CTA chest showed no pulmonary embolism COPD exacerbation: Seems to be improving. Management per primary team. Dr. Lopez covers Dr. Hall 08/03 to 08/04. Wing Nora Lopez MD Aug 04, 2017 10:04
[2017-08-04 12:00] VITALS: BP 162/91; PULSE 97; RESP 20; TEMP 97.7; O2SAT 94
[2017-08-04] MEDS: LEVOFLOXACIN 750 MG TAB PO SCH (12:14)
[2017-08-04] MEDS ORDERED: ALBUAER3 INH (12:37)
[2017-08-04] MEDS ORDERED: LEVA750T9 PO (12:37)
[2017-08-04] MEDS ORDERED: PRED10 PO (12:37)
[2017-08-04] MEDS ORDERED: OXYGENDME NAS.CANULA (12:37)
[2017-08-04] MEDS ORDERED: FLUT1INH INH (12:37)
[2017-08-04] MEDS ORDERED: CLAR10CA3 PO (12:38)
--- NOTE | 2017-08-04 12:39 | HHI.FF ---
Face to Face Verification Diagnosis: (1) COPD exacerbation (2) CHF (congestive heart failure) (3) Hypoxemia Home Health Nursing Order: Oxygen administration education I have seen patient Bernabe Brown on 08/04/17. My clinical findings support the need for the requested home health care services because: Ltd mobility - disease progression Patient has SOB Deconditioned w/ increased weakness I certify that my clinical findings support that this patient is homebound because: Hx COPD- exertion dyspnea/weakness Unsafe to leave home unassisted Unable to use public transportation Dominic Calvo MD Aug 04, 2017 12:39
--- NOTE | 2017-08-04 12:43 | HHI.DS ---
Discharge Summary Admission Date Jul 31, 2017 at 22:39 Discharge Date: Aug 04, 2017 Admitting Diagnosis COPD exacerbation, hypoxia, respiratory distress, elevated troponin (1) COPD exacerbation ICD Code: J44.1 - Chronic obstructive pulmonary disease with (acute) exacerbation Diagnosis: Principal Status: Acute (2) Elevated troponin ICD Code: R74.8 - Abnormal levels of other serum enzymes Diagnosis: Principal Status: Acute (3) Dyspnea ICD Code: R06.00 - Dyspnea, unspecified Diagnosis: Secondary Status: Acute (4) Hypoxemia ICD Code: R09.02 - Hypoxemia Diagnosis: Principal Status: Acute Procedures None Brief History - From Admission Patient is a 62-year-old male with history of COPD who was seen in the emergency department for "6TH time" this week for COPD exacerbation. Patient had refused admission on earlier visits. He reported that he was not getting any better and patient was therefore made a full admission this time. Patient is from [place] usually comes to [place] and usually gets a COPD exacerbation. Had been taking some steroids. Some albuterol treatments has not really had improvement he has had increasing shortness of breath at rest worse with exertion with inability to take a deep breath. Denies any hemoptysis denies any fevers or chills. Patient's troponins were found to be positive Had a VQ scan which is intermediate probability for pulmonary emboli Patient will be transferred to the main [facility] for evaluation by cardiology and pulmonary and hematology due to the pulmonary embolism CBC/BMP: 08/03/17 0745 08/03/17 0745 Significant Findings Laboratory Tests Test 08/01/17 17:40 08/02/17 04:35 08/03/17 07:45 Fibrinogen 135 mg/dL (227-377) White Blood Count 16.5 TH/MM3 (4.0-11.0) 17.3 TH/MM3 (4.0-11.0) Neutrophils (%) (Auto) 94.4 % (16.0-70.0) 93.6 % (16.0-70.0) Lymphocytes (%) (Auto) 2.2 % (9.0-44.0) 1.8 % (9.0-44.0) Neutrophils # (Auto) 15.5 TH/MM3 (1.8-7.7) 16.2 TH/MM3 (1.8-7.7) Lymphocytes # (Auto) 0.4 TH/MM3 (1.0-4.8) 0.3 TH/MM3 (1.0-4.8) Blood Urea Nitrogen 34 MG/DL (7-18) 33 MG/DL (7-18) Random Glucose 144 MG/DL (74-106) 131 MG/DL (74-106) Total Protein 5.1 GM/DL (6.4-8.2) 5.2 GM/DL (6.4-8.2) Albumin 2.4 GM/DL (3.4-5.0) 2.5 GM/DL (3.4-5.0) Calcium Level 8.2 MG/DL (8.5-10.1) 8.4 MG/DL (8.5-10.1) Alkaline Phosphatase 41 U/L (45-117) 42 U/L (45-117) Carbon Dioxide Level 35.5 MEQ/L (21.0-32.0) 36.5 MEQ/L (21.0-32.0) Estimat Glomerular Filtration Rate 86 ML/MIN (>89) Hemoglobin A1c 6.1 % (4.3-6.0) Troponin I 0.10 NG/ML (0.02-0.05) Free Thyroxine 0.66 NG/DL (0.76-1.46) Thyroid Stimulating Hormone 3rd Gen 0.101 uIU/ML (0.358-3.740) Aspartate Amino Transf (AST/SGOT) 13 U/L (15-37) Chloride Level 97 MEQ/L (98-107) Hospital Course Mrs. Brown is a 62-year-old male. He has a known history of congestive heart failure. He came in secondary to COPD exacerbation with severe dyspnea. He was monitored in the ICU. Troponin levels were elevated. Workup of elevated troponin levels showed no evidence of myocardial infarction. Through time his COPD exacerbation has improved. He continues to improve but he is still bleeding oxygen at this point. However his ambulation has improved and the plan is to discharge home with home oxygen. Adjustments in his COPD management will be made. He will discharge with continuation of baseline albuterol and she will have an addition of an inhaled steroid. Medically stable and cleared for discharge home today, if outpatient oxygen can be arranged. Pt Condition on Discharge: Good Discharge Disposition: Discharge Home Discharge Time: > 30 minutes Discharge Instructions DIET: Follow Instructions for: Heart Healthy Diet Activities you can perform: Regular-No Restrictions Follow up Referrals: PCP Follow-up - 2 Weeks New Medications: Fluticasone-Vilanterol Inh (Breo Ellipta Inh) 100-25 Mcg/Act Inh 1 PUFF INH DAILY for Breathing Treatment, #1 INHALER 0 Refills Use daily at the same time. Loratadine (Claritin) 10 Mg Cap 10 MG PO DAILY PRN for ALLERGIES, #30 CAP 0 Refills Oxygen (O2) (Oxygen (O2)) Device LITER CM.CANULA CONTINUOUS for Prevent Hypoxemia, #2 Oxygen Concentrator Portable Gaseous 2 L/min via Nasal Canula Continuous For 99 months Prednisone (Prednisone) 10 Mg Tab 10 MG PO DIRECTED for Inflammation, #17 TAB 0 Refills 2 tab daily, day 1 to 5 1 tab daily, day 6 to 10 1/2 tab daily, day 11 to 14 Then stop Levofloxacin (Levaquin) 750 Mg Tablet 750 MG PO Q24H for Infection, #4 TAB Continued Medications: Albuterol 8.5 GM Inh (Proair Hfa 8.5 GM Inh) 90 Mcg/Act Aer 2 PUFF INH Q6H PRN for SHORTNESS OF BREATH, #1 INHALER 0 Refills (This prescription has been renewed) 108 mcg/actuation Discontinued Medications: Prednisone (Prednisone) 20 Mg Tab 20 MG PO DIRECTED, #24 TAB 0 Refills Take 60 MG daily x 4 days, then 40 MG x 4 days, then 20 MG daily x 4 days. Dominic Calvo MD Aug 04, 2017 12:43
--- NOTE | 2017-08-04 17:02 | ECHRPT ---
Indication: CARDIOMYOPATHY CONCLUSIONS Mildly dilated left ventricle. Wall thickness is normal. The left ventricular systolic function is severely reduced with an estimated ejection fraction in th e range of 25%. Global hypokinesis Mild aortic dilatation at the level of the sinuses of Valsalva. Trace mitral valve regurgitation. BP: / HR: Rhythm: MEASUREMENTS (Male / Female) Normal Values Technical Quality: 2D ECHO LV Diastolic Diameter PLAX 5.5 cm 4.2 - 5.9 / 3.9 - 5.3 cm LV Systolic Diameter PLAX 4.7 cm IVS Diastolic Thickness 1.1 cm 0.6 - 1.0 / 0.6 - 0.9 cm LVPW Diastolic Thickness 0.8 cm 0.6 - 1.0 / 0.6 - 0.9 cm LV Relative Wall Thickness 0.4 RV Internal Dim ED PLAX 1.8 cm LA Systolic Diameter LX 3.5 cm 3.0 - 4.0 / 2.7 - 3.8 cm DOPPLER Mitral E Point Velocity 81.4 cm/s Mitral A Point Velocity 89.8 cm/s Mitral E to A Ratio 0.9 TR Peak Velocity 197.0 cm/s TR Peak Gradient 15.5 mmHg Right Atrial Pressure 5.0 mmHg Pulmonary Artery Systolic Pressu 20.5 mmHg Right Ventricular Systolic Press 20.5 mmHg FINDINGS LEFT VENTRICLE Mildly dilated left ventricle. Wall thickness is normal. The left ventricular systolic function is severely reduced with an estimated ejection fraction in th e range of 25%. There is global left ventricular dysfunction. RIGHT VENTRICLE Normal right ventricular size and systolic function. LEFT ATRIUM The left atrial size is normal. RIGHT ATRIUM The right atrial size is normal. ATRIAL SEPTUM Normal atrial septal thickness without atrial level shunting by limited color doppler interrogation. AORTA Mild aortic dilatation at the level of the sinuses of Valsalva. MITRAL VALVE Trace mitral valve regurgitation. AORTIC VALVE Trileaflet aortic valve. No aortic valve stenosis or regurgitation. TRICUSPID VALVE Structurally normal tricuspid valve. No tricuspid valve stenosis or regurgitation. PULMONARY VALVE No pulmonary valve regurgitation or stenosis. VESSELS The inferior vena cava is normal in size. PERICARDIUM No pericardial effusion. Nacho Vaz MD (Electronically Signed) Final Date:04 August 2017 17:00
[2017-08-05 19:52] LABS: APTT VON WILL EVAL 32 sec (22-34)
[2017-08-05 23:52] LABS: VWF AG 255 % (50-217); VWF RISTOCETIN CO FACTOR 133 (42-200)
[2017-08-07 03:49] LABS: FACTOR IX(9) ACTIVITY 136 (60-160)
[2017-08-07 07:50] LABS: THROMBIN TIME 23 sec (13-19)
== END 2017-08-04 17:30 | disposition home or self-care (01) | DRG 192 ==
LOC: PHED 20:54 → PHEDA 22:39 → PHICU 08-01 01:01 → PH3B 08-03 01:24
PROVIDERS: ADMIT Hospitalist; ATTEND Hospitalist
DX: J44.1 Chronic obstructive pulmonary disease with (acute) exacerbation (principal); I50.9 Heart failure, unspecified; D72.829 Elevated white blood cell count, unspecified; R06.82 Tachypnea, not elsewhere classified; R74.8 Abnormal levels of other serum enzymes; R09.02 Hypoxemia; K30 Functional dyspepsia; F41.9 Anxiety disorder, unspecified; M54.9 Dorsalgia, unspecified; Z87.891 Personal history of nicotine dependence; Z91.041 Radiographic dye allergy status; Z91.013 Allergy to seafood; Z88.5 Allergy status to narcotic agent; Z88.8 Allergy status to other drugs, medicaments and biological substances; Z79.899 Other long term (current) drug therapy
CPT/HCPCS: 71045; 71275; 78452; 78582; 80053; 81240; 82550; 82552; 83036; 83735; 83880; 84100; 84439; 84443; 84484; 85025; 85240; 85245; 85246; 85247; 85250; 85379; 85384; 85610; 85670; 85730; 93005; 93017; 93306; 93970; 94060; 94150; 94618; 94640; 94664; 96374; A9502; A9540; A9567; J1200; J1650; J2405; J2785; J2920; J2930; J7030; Q9967